=== PATIENT | female | born 1970 | race Caucasian/White ===

== ENCOUNTER 2017-01-12 01:52 | Inpatient (IN) | payer MEDICAID, OTHER ==
[2017-01-12] VITALS (8 sets, daily range): BP systolic 127–145; BP diastolic 78–91; PULSE 58–106; RESP 16–20; TEMP 97.7–99.8; O2SAT 97–100
[~2017-01-12] VITALS: Ht 162.6 cm; Wt 64.8 kg
[~2017-01-12 01:52] MED LIST: ADDE30TA PO; ALPR.5 PO; CELE40TA PO; IBUP400T20 PO; MOBI7.5T PO; OMEP20TA PO; ROBA750T PO
[2017-01-12] MEDS ORDERED: SODIUM CHLOR 0.9% 1000 ML INJ 1,000 ML IV SCH (02:13)
[2017-01-12] MEDS ORDERED: SODIUM CHLORIDE 0.9% FLUSH 5 ML FLUSH IVF PRN (02:15)
[2017-01-12] MEDS ORDERED: MORPHINE SULFATE 4 MG/ML INJ IV ONE (02:15)
[2017-01-12] MEDS ORDERED: ONDANSETRON HCL 4 MG/2 ML VIAL IV PUSH ONE (02:15)
[2017-01-12] MEDS ORDERED: AMBI10TA PO (02:18)
[2017-01-12] MEDS ORDERED: VALT500T PO (02:18)
--- NOTE | 2017-01-12 02:18 | PD ---
HPI Chief Complaint: Fall Time Seen by Provider: 02:10 Travel History International Travel<30 days: No Contact w/Intl Traveler<30days: No Traveled to known affect area: No History of Present Illness HPI 46-year-old female here for evaluation of chest and abdominal pain that started after falling out of bed at around 3:00 AM yesterday morning. Patient denies head or neck pain or injury. She is not on any antiplatelets or anticoagulants. Patient reports mainly abdominal pain that radiates up into her chest and around to her back. Pain is moderate to severe, worse with movement and palpation, associated with nausea. No vomiting or diarrhea. She tried Tylenol without relief of symptoms. She reports that she had her bladder stretched as a child, no other abdominal surgeries. PFSH Past Medical History Anxiety: Yes Depression: Yes Diminished Hearing: No Past Surgical History Other Surgery: Yes (BLADDER STRETCH AT AGE 2) Social History Alcohol Use: Yes (DAILY) Tobacco Use: No Substance Use: No Allergies-Medications (Allergen,Severity, Reaction): Coded Allergies: Hydrocodone (Unverified Allergy, Mild, 01/12/17) STATES MAKES HER FEEL "WIRED" Uncoded Allergies: BEETS (Allergy, Unknown, 03/19/14) PT STATES UNKNOWN Reported Meds & Prescriptions Reported Meds & Active Scripts Active Robaxin (Methocarbamol) 750 Mg Tab 750 Mg PO Q8HR Reported Ambien (Zolpidem Tartrate) 10 Mg Tab 10 Mg PO HS PRN Valtrex (Valacyclovir HCl) 500 Mg Tab 500 Mg PO TID PRN Omeprazole 20 Mg Tab 20 Mg PO DAILY Xanax (Alprazolam) 0.5 Mg Tab 0.5 Mg PO TID Celexa (Citalopram Hydrobromide) 40 Mg Tab 40 Mg PO DAILY Mobic (Meloxicam) 7.5 Mg Tab 15 Mg PO DAILY Review of Systems Except as stated in HPI: all other systems reviewed are Neg Physical Exam Narrative GENERAL: Well-developed, well-nourished, no acute distress. SKIN: Warm and dry. HEAD: Atraumatic. Normocephalic. EYES: Pupils equal and round. No scleral icterus. No injection or drainage. ENT: Mucous membranes pink and moist. NECK: Trachea midline. No JVD. CARDIOVASCULAR: Regular rate and rhythm. No murmur appreciated. RESPIRATORY: No accessory muscle use. Clear to auscultation. Breath sounds equal bilaterally. GASTROINTESTINAL: Abdomen soft, moderately distended, moderate diffuse tenderness. Normal bowel sounds. No hernias. MUSCULOSKELETAL: No obvious deformities. No clubbing. No cyanosis. No edema. NEUROLOGICAL: Awake and alert. No obvious cranial nerve deficits. Motor grossly within normal limits. Normal speech. PSYCHIATRIC: Appropriate mood and affect; insight and judgment normal. Data Data Last Documented VS Vital Signs Date Time Temp Pulse Resp B/P Pulse Ox O2 Delivery O2 Flow Rate FiO2 01/12/17 03:33 100 16 134/88 98 Room Air 01/12/17 02:01 97.8 Orders Complete Blood Count With Diff (01/12/17 02:13) Prothrombin Time / Inr (Pt) (01/12/17 02:13) Act Partial Throm Time (Ptt) (01/12/17 02:13) Type And Screen (01/12/17 02:13) Urinalysis - C+S If Indicated (01/12/17 02:13) Chest, Single Ap (01/12/17 02:13) Ct Abd/Pel W Iv Contrast(Rout) (01/12/17 02:13) Ct Thorax/ Chest W Iv Contrast (01/12/17 02:13) Iv Access Insert/Monitor (01/12/17 02:13) Ecg Monitoring (01/12/17 02:13) Oximetry (01/12/17 02:13) Oxygen Administration (01/12/17 02:13) Morphine Inj (Morphine Inj) (01/12/17 02:15) Sodium Chlor 0.9% 1000 Ml Inj (Ns 1000 M (01/12/17 02:13) Sodium Chloride 0.9% Flush (Ns Flush) (01/12/17 02:15) Ondansetron Inj (Zofran Inj) (01/12/17 02:15) Electrocardiogram (01/12/17 02:15) Ckmb (Isoenzyme) Profile (01/12/17 02:15) Troponin I (01/12/17 02:15) Beta Hcg (Quant/Titer) (01/12/17 02:35) Comprehensive Metabolic Panel (01/12/17 02:35) CKMB (01/12/17 02:35) CKMB% (01/12/17 02:35) Comprehensive Metabolic Panel (01/12/17 03:59) Lactic Acid (01/12/17 03:59) Blood Culture (01/12/17 03:59) Iohexol 350 Inj (Omnipaque 350 Inj) (01/12/17 04:11) Sodium Chlor 0.9% 1000 Ml Inj (Ns 1000 M (01/12/17 04:45) Morphine Inj (Morphine Inj) (01/12/17 04:45) Piperacil-Tazo 3.375 Gm Premix (Zosyn 3. (01/12/17 04:45) Lipase (01/12/17 04:05) Sodium Chlor 0.9% 1000 Ml Inj (Ns 1000 M (01/12/17 05:00) Admit Order (Ed Use Only) (01/12/17 04:53) Vital Signs (Adult) Q4H (01/12/17 04:52) Bedside Glucose ABIGAIL.AC&HS (01/12/17 04:52) Intake + Output ABIGAIL.QSHIFT (01/12/17 04:52) Alcohol Withdrawal Asmt-Ciwa Q4HX18 (01/12/17 04:52) ^ Seizure Precautions (01/12/17 04:52) Multivitamin Inj (Mvi-12 Inj)... (01/12/17 06:00) Thiamine Inj (Thiamine Inj) (01/12/17 06:00) Thiamine (Vit B1) (Vitamin B1) (01/15/17 09:00) Consult Cm-Etoh Abuse Dc Plan (01/12/17 ) Flumazenil Inj (Romazicon Inj) (01/12/17 05:00) Lorazepam (Ativan) (01/12/17 05:00) Lorazepam Inj (Ativan Inj) (01/12/17 05:00) Lorazepam (Ativan) (01/12/17 05:00) Lorazepam Inj (Ativan Inj) (01/12/17 05:00) Lorazepam Inj (Ativan Inj) (01/12/17 05:00) Lorazepam Inj (Ativan Inj) (01/12/17 05:00) Haloperidol Inj (Haldol Inj) (01/12/17 05:00) Piperacil-Tazo 4.5 Gm Premix (Zosyn 4.5 (01/12/17 10:00) Admit To Inpatient (01/12/17 ) Vital Signs (Adult) Q4H (01/12/17 04:52) Activity Oob With Assistance (01/12/17 04:52) Leather Fitter / Telemetry .CONTINUOUS (01/12/17 04:52) Intake + Output ABIGAIL.QSHIFT (01/12/17 04:52) Diet Clear Liquid (01/12/17 Breakfast) Sodium Chloride 0.9% Flush (Ns Flush) (01/12/17 05:00) Sodium Chloride 0.9% Flush (Ns Flush) (01/12/17 09:00) Ondansetron Inj (Zofran Inj) (01/12/17 05:00) Bisacodyl Supp (Dulcolax Supp) (01/12/17 05:00) Comprehensive Metabolic Panel (01/13/17 06:00) Complete Blood Count With Diff (01/13/17 06:00) Lipase (01/13/17 06:00) Scd Bilateral/Knee High ABIGAIL.BID (01/12/17 04:52) Alexander Bilateral/Knee High ABIGAIL.QSHIFT (01/12/17 04:52) Acetaminophen (Tylenol) (01/12/17 05:00) Morphine Inj (Morphine Inj) (01/12/17 05:00) Oxycodone (Roxicodone) (01/12/17 05:00) Inpatient Certification (01/12/17 ) Labs Laboratory Tests Test 01/12/17 01/12/17 02:35 04:05 White Blood Count 19.8 TH/MM3 Red Blood Count 4.51 MIL/MM3 Hemoglobin 14.9 GM/DL Hematocrit 44.0 % Mean Corpuscular Volume 97.6 FL Mean Corpuscular Hemoglobin 33.1 PG Mean Corpuscular Hemoglobin 33.9 % Concent Red Cell Distribution Width 12.8 % Platelet Count 262 TH/MM3 Mean Platelet Volume 8.2 FL Neutrophils (%) (Auto) 90.3 % Lymphocytes (%) (Auto) 4.4 % Monocytes (%) (Auto) 4.0 % Eosinophils (%) (Auto) 0.2 % Basophils (%) (Auto) 1.1 % Neutrophils # (Auto) 17.9 TH/MM3 Lymphocytes # (Auto) 0.9 TH/MM3 Monocytes # (Auto) 0.8 TH/MM3 Eosinophils # (Auto) 0.0 TH/MM3 Basophils # (Auto) 0.2 TH/MM3 CBC Comment AUTO DIFF Differential Comment AUTO DIFF CONFIRMED Platelet Estimate NORMAL Platelet Morphology Comment NORMAL Red Cell Morphology Comment NORMAL Urine Color OTTO Urine Turbidity SLIGHT Urine pH 5.0 Urine Specific [place] GREATER THAN 1.035 Urine Protein 30 mg/dL Urine Glucose (UA) NEG mg/dL Urine Ketones NEG mg/dL Urine Occult Blood NEG Urine Nitrite NEG Urine Bilirubin NEG Urine Leukocyte Esterase NEG Urine WBC 0-2 /hpf Urine Squamous Epithelial 6-8 /hpf Cells Urine Bacteria FEW /hpf Urine Mucus MOD /lpf Microscopic Urinalysis Comment CULT NOT INDICATED Sodium Level 127 MEQ/L 129 MEQ/L Potassium Level 4.1 MEQ/L 3.7 MEQ/L Chloride Level 90 MEQ/L 92 MEQ/L Carbon Dioxide Level 20.5 MEQ/L 26.2 MEQ/L Anion Gap 17 MEQ/L 11 MEQ/L Blood Urea Nitrogen 6 MG/DL 6 MG/DL Creatinine 0.92 MG/DL 0.68 MG/DL Estimat Glomerular Filtration 66 ML/MIN 93 ML/MIN Rate Random Glucose 112 MG/DL 99 MG/DL Calcium Level 8.1 MG/DL 7.0 MG/DL Total Bilirubin 1.8 MG/DL 1.5 MG/DL Aspartate Amino Transf 328 U/L 228 U/L (AST/SGOT) Alanine Aminotransferase 226 U/L 162 U/L (ALT/SGPT) Alkaline Phosphatase 101 U/L 76 U/L Total Creatine Kinase 126 U/L Creatine Kinase MB 1.2 NG/ML Troponin I LESS THAN 0.02 NG/ML Total Protein 7.1 GM/DL 5.3 GM/DL Albumin 3.7 GM/DL 2.9 GM/DL Human Chorionic Gonadotropin, LESS THAN 1 Quant MIU/ML Blood Type B POSITIVE Antibody Screen NEGATIVE Blood Bank Comment Lactic Acid Level 3.2 mmol/L Protein Corrected Calcium 7.9 MG/DL Lipase 7625 U/L [facility] Medical Decision Making Medical Screen Exam Complete: Yes Emergency Medical Condition: Yes Medical Record Reviewed: Yes Interpretation(s) EKG: Sinus, rate 92, normal axis, normal intervals, no acute ischemic abnormality. Differential Diagnosis Intrathoracic trauma, intra-abdominal trauma, intra-abdominal infectious process , ACS Narrative Course Vital signs show heart rate 106, blood pressure 143/82, pulse ox 100% on room air, oral temp of 97.8F. CBC is markable for WBC 19.8 with 90% neutrophils. CMP is remarkable for sodium 127, chloride 90, bicarbonate 20.5, anion gap 17, T bili 1.8, AST 328, ALT 226. Cardiac enzymes are negative. Beta hCG is negative. UA is not suggestive of UTI. Patient admits to drinking a moderate amount of alcohol, however she denies that she is a daily drinker. She states that she drinks alcohol every other day and drinks about 1-2 bottles of wine when she does. CT thorax: CONCLUSION: 1. No acute findings within the thorax. Dependent atelectasis in the lungs. See abdomen CT. CT abdomen pelvis: CONCLUSION: 1. Left lower lateral nondisplaced rib fracture possibly subacute. 2. Peripancreatic edema and fluid most characteristic of acute pancreatitis. Gallbladder is mildly distended. Small amount of free fluid in the abdomen and pelvis. No free air. Patient was made aware of all findings. Lipase added after CT abdomen pelvis reported. Patient is still tachycardic with a heart rate of 110. She was given a liter of IV fluids and return for a second liter. Given her leukocytosis and abdominal pain, she was also given a dose of Zosyn. She will be admitted for further treatment and evaluation of acute pancreatitis. Again the patient admits to drinking alcohol, but states she only does so every other day, and when she does she drinks about 1-2 bottles of wine. Case discussed with hospitalist Dr. Verduzco who will admit the patient to her service. Lipase is 7625. Lactic acid is 3.2. Lab reports that initial coags that were sent were unable to be run. A repeat blood type was sent and is pending at time of admission. Diagnosis Primary Impression: Acute pancreatitis Qualified Code: K85.20 - Alcohol-induced acute pancreatitis, unspecified complication status Additional Impressions: Leukocytosis Qualified Code: D72.829 - Leukocytosis, unspecified type Rib fracture Qualified Code: S22.32XA - Closed fracture of one rib of left side, initial encounter Hyponatremia Transaminitis Medhat Maldonado MD Jan 12, 2017 02:18
[2017-01-12 03:01] LABS: AUTOMATED NEUTROPHIL # 17.9 TH/MM3 (1.8-7.7); BASOPHIL # 0.2 TH/MM3 (0-0.2); BASOPHIL % 1.1 % (0.0-2.0); BLOOD, URINE NEG (NEG); EOSINOPHIL % 0.2 % (0.0-4.0); GLUCOSE,URINE NEG (NEG); KETONE, URINE NEG (NEG); LYMPH % 4.4 % (9.0-44.0); LYMPHOCYTE # 0.9 TH/MM3 (1.0-4.8); MEAN CELL VOLUME 97.6 FL (80.0-100.0); MEAN CORPUSCULAR HEMOGLOBIN 33.1 PG (27.0-34.0); MEAN CORPUSCULAR HGB CONC 33.9 % (32.0-36.0); NEUT % 90.3 % (16.0-70.0); NITRITE,URINE NEG (NEG); PLATELET COUNT 262 TH/MM3 (150-450); RED BLOOD COUNT 4.51 MIL/MM3 (4.00-5.30); RED CELL DISTRIBUTION WIDTH 12.8 % (11.6-17.2); WHITE BLOOD COUNT 19.8 TH/MM3 (4.0-11.0)
[2017-01-12 03:02] LABS: HEMO FLAGS AUTO DIFF
--- NOTE | 2017-01-12 03:02 | RADHPO ---
EXAM DATE/TIME: 01/12/2017 02:53 [facility] COMPARISON: No previous studies available for comparison. INDICATIONS : Fall. Chest pain. MEDICAL HISTORY : None. SURGICAL HISTORY : None. ENCOUNTER: Initial ACUITY: 1 day PAIN SCORE: 7/10 LOCATION: Bilateral chest FINDINGS: A single view of the chest demonstrates the lungs to be symmetrically aerated without evidence of mas s, infiltrate or effusion. The cardiomediastinal contours are unremarkable. Osseous structures are intact. CONCLUSION: No acute disease. Derek Trinidad MD on January 12, 2017 at 3:00 Board Certified Radiologist. This report was verified electronically.
[2017-01-12 03:15] LABS: CHLORIDE 90 MEQ/L (98-107); SODIUM (NA) 127 MEQ/L (136-145)
[2017-01-12 03:21] LABS: ANION GAP 17 MEQ/L (5-15); BICARBONATE 20.5 MEQ/L (21.0-32.0); BLOOD UREA NITROGEN 6 MG/DL (7-18)
[2017-01-12 03:23] LABS: ALT (GPT) 226 U/L (10-53)
[2017-01-12 03:24] LABS: AST (GOT) 328 U/L (15-37); GLOMERULAR FILTRATION RATE 66 ML/MIN (>89)
[2017-01-12 03:25] LABS: CREATINE KINASE 126 U/L (26-192); TOTAL BILIRUBIN ADULT 1.8 MG/DL (0.2-1.0); URINE COLOR AMBER (YELLW/STRAW)
[2017-01-12 03:26] LABS: ALKALINE PHOSPHATASE 101 U/L (45-117); BACTERIA, URINE FEW /hpf; BETA HCG QUANT LESS THAN 1 MIU/ML (0-5); MUCUS URINE MOD /lpf (OCC)
[2017-01-12 03:27] LABS: COMMENT (UR) CULT NOT INDICATED; CULTURE IF INDICATED CULT NOT INDICATED; WBC, URINE 0-2 /hpf (0-5)
[2017-01-12 03:28] LABS: POTASSIUM 4.1 MEQ/L (3.5-5.1)
[2017-01-12 03:34] LABS: PLATELET ESTIMATE SMEAR NORMAL (NORMAL); PLATELET MORPHOLOGY NORMAL (NORMAL); SCAN/DIFF AUTO DIFF CONFIRMED
[2017-01-12 03:45] LABS: CKMB 1.2 NG/ML (0.5-3.6)
[2017-01-12] MEDS ORDERED: IOHEXOL 350 MG/ML 10 ML VIAL (for RAD DIAG) IV ONE (04:11)
--- NOTE | 2017-01-12 04:23 | RADHPO ---
EXAM DATE/TIME: 01/12/2017 03:50 [facility] COMPARISON: No previous studies available for comparison. INDICATIONS : Fall yesterday. Diffuse chest and abdominal pain. IV CONTRAST: 96 cc Omnipaque 350 (iohexol) IV ; Cumulative dose for multiple exams. RADIATION DOSE: 11.48 CTDIvol (mGy) ; Combined studies - Thorax/Abdomen/Pelvis MEDICAL HISTORY : None SURGICAL HISTORY : None. ENCOUNTER: Initial ACUITY: 2 days PAIN SCALE: 5/10 LOCATION: chest TECHNIQUE: Volumetric scanning of the chest was performed. Using automated exposure control and adjustment of t he mA and/or kV according to patient size, radiation dose was kept as low as reasonably achievable to obtain optimal diagnostic quality images. FINDINGS: There is mild dependent atelectasis in the lungs. No pleural or pericardial effusion. No adenopathy. No acute bony abnormalities in the thorax. See abdomen CT for findings below diaphragm. CONCLUSION: 1. No acute findings within the thorax. Dependent atelectasis in the lungs. See abdomen CT. Derek Trinidad MD on January 12, 2017 at 4:19 Board Certified Radiologist. This report was verified electronically.
--- NOTE | 2017-01-12 04:27 | RADHPO ---
EXAM DATE/TIME: 01/12/2017 03:50 [facility] COMPARISON: No previous studies available for comparison. INDICATIONS : Fall yesterday. Chest and abdominal pain. IV CONTRAST: 96 cc Omnipaque 350 (iohexol) IV ; Cumulative dose for multiple exams. ORAL CONTRAST: No oral contrast ingested. RADIATION DOSE: 11.48 CTDIvol (mGy) ; Combined studies - Thorax/Abdomen/Pelvis MEDICAL HISTORY : None SURGICAL HISTORY : None. ENCOUNTER: Initial ACUITY: 2 days PAIN SCALE: 5/10 LOCATION: Abdomen. TECHNIQUE: Volumetric scanning of the abdomen and pelvis was performed. Using automated exposure control and ad justment of the mA and/or kV according to patient size, radiation dose was kept as low as reasonably achievable to obtain optimal diagnostic quality images. FINDINGS: Lung bases clear except minimal dependent atelectasis. There is a left lower lateral rib fracture whi ch may be subacute. There is diffuse fatty infiltration of the liver. There is peripancreatic edema and fluid most charac teristic of acute pancreatitis. Small amount of free fluid is seen tracking in the paracolic gutters and there is some free fluid in the pelvis. No acute findings in the adrenals, kidneys. No bowel obstruction. No free air. CONCLUSION: 1. Left lower lateral nondisplaced rib fracture possibly subacute. 2. Peripancreatic edema and fluid most characteristic of acute pancreatitis. Gallbladder is mildly di stended. Small amount of free fluid in the abdomen and pelvis. No free air. Derek Trinidad MD on January 12, 2017 at 4:22 Board Certified Radiologist. This report was verified electronically.
[2017-01-12 04:31] LABS: POTASSIUM 3.7 MEQ/L (3.5-5.1)
[2017-01-12 04:43] LABS: BICARBONATE 26.2 MEQ/L (21.0-32.0); TOTAL BILIRUBIN ADULT 1.5 MG/DL (0.2-1.0)
[2017-01-12] MEDS ORDERED: MORPHINE SULFATE 4 MG/ML INJ IV PUSH ONE (04:45)
[2017-01-12] MEDS ORDERED: SODIUM CHLOR 0.9% 1000 ML INJ 1,000 ML IV ONE ×3 (04:45→13:45)
[2017-01-12] MEDS ORDERED: PIPERACIL-TAZO 3.375 GM PREMIX 50 ML IV ONE (04:45)
[2017-01-12] MEDS ORDERED: SODIUM CHLORIDE 0.9% FLUSH 5 ML FLUSH FLUSH PRN (05:00)
[2017-01-12] MEDS ORDERED: LORazepam 2 MG TAB PO PRN (05:00)
[2017-01-12] MEDS ORDERED: ACETAMINOPHEN 325 MG TAB PO PRN (05:00)
[2017-01-12] MEDS ORDERED: LORazepam 2 MG/ML VIAL IV PUSH PRN ×3 (05:00)
[2017-01-12] MEDS ORDERED: BISACODYL 10 MG SUPP PR PRN (05:00)
[2017-01-12] MEDS ORDERED: HALOPERIDOL LACTATE 5 MG/ML AMP IM PRN (05:00)
[2017-01-12] MEDS ORDERED: FLUMAZENIL 0.5 MG/5 ML VIAL IV PUSH PRN (05:00)
[2017-01-12 05:06] LABS: CALCIUM-PROTEIN CORRECTED 7.9 MG/DL (8.5-10.1)
[2017-01-12] MEDS: THIAMINE INJ 100 MG in SODIUM CHLORIDE 0.9% INJ 100 ML IV SCH (06:44)
[2017-01-12] MEDS: MULTIVITAMIN INJ 10 ML, FOLIC ACID INJ 1 MG in SODIUM CHLORID 0.9% 500 ML INJ 500 ML IV SCH (06:45)
[2017-01-12 06:49] LABS: APTT (PATIENT) 26.1 SEC (24.3-30.1); INTERNATIONAL NORMALIZED RATIO 1.3 RATIO; PROTHROMBIN TIME - PATIENT 14.3 SEC (9.8-11.6)
[2017-01-12] MEDS: SODIUM CHLORIDE 0.9% FLUSH 5 ML FLUSH FLUSH SCH ×2 (08:53→20:07)
[2017-01-12] MEDS: LORazepam 2 MG/ML VIAL IV PUSH PRN ×2 (08:54→15:12)
[2017-01-12] MEDS: PIPERACIL-TAZO 4.5 GM PREMIX 100 ML IV SCH ×3 (11:25→20:08)
--- NOTE | 2017-01-12 12:37 | EKG ---
Date Performed: 01/12/2017 Time Performed: 02:46:56 PTAGE: 46 years EKG: Sinus rhythm . Normal ECG NO PREVIOUS TRACING DOCTOR: Dillan Gomez Interpretating Date/Time 01/12/2017 12:31:33
--- NOTE | 2017-01-12 13:39 | HHI.HP ---
esa bennett [facility] Service [facility] Primary Care Physician Esa Bennett M.D. Admission Diagnosis acute pancreatitis, leukocytosis, hyponatremia, rib fracture Diagnoses: Chief Complaint: fall at home Travel History International Travel<30 Days: No Contact w/Intl Traveler <30 Da: No Traveled to Known Affected Are: No Sepsis Criteria SIRS Criteria (2 or more): Heart rate over 90, WBC > 37560, < 4000 or > 10% bands Sepsis Criteria (SIRS+source): Infect source susp/known Severe Sepsis (+one): Organ Dysfunction, Lactate >2 History of Present Illness This patient is a 46-year-old female who had been drinking overnight and tripped and fell in the morning. She reported chest pain and abdominal discomfort and came to the emergency room for evaluation of same. Patient's found have some right lower rib fracture as well as elevated LFTs and evidence of acute pancreatitis. Patient does say she had been somewhat nauseated but had a lot of back pain radiating into her chest over the last 3-4 days. Pain is 10 out of 10 and associate with bloating. Her menstrual cycle is on and she figured it was related to that area she does take omeprazole as needed for dyspepsia. The pain is worse with movement and improved with morphine. She has been able to eat but noted that it was uncomfortable. She's never had pancreatitis before. Patient was given IV fluids overnight. Pain medication has been helpful and the patient is now slightly tremulous. She also had fever with tachycardia and tachypnea and elevated lactic acid. Patient also appears to have sepsis. This is likely due to her pancreatitis and for these reasons the patient has been admitted to the hospital Review of Systems Constitutional: DENIES: Diaphoretic episodes, Fatigue, Fever, Weight gain, Weight loss, Chills, Dizziness, Change in appetite, Night Sweats Endocrine: DENIES: Abnorml menstrual pattern, Heat/cold intolerance, Polydipsia , Polyuria, Polyphagia Eyes: DENIES: Blurred vision, Diplopia, Eye inflammation, Eye pain, Vision loss , Photosensitivity, Double Vision Ears, nose, mouth, throat: DENIES: Tinnitus, Hearing loss, Vertigo, Nasal discharge, Oral lesions, Throat pain, Hoarseness, Ear Pain, Running Nose, Epistaxis, Sinus Pain, Toothache, Odynophagia Respiratory: DENIES: Apneas, Cough, Snoring, Wheezing, Hemoptysis, Sputum production, Shortness of breath Cardiovascular: DENIES: Chest pain, Palpitations, Syncope, Dyspnea on Exertion , PND, Lower Extremity Edema, Orthopnea, Claudication Gastrointestinal: DENIES: Abdominal pain, Black stools, Bloody stools, Constipation, Diarrhea, Nausea, Vomiting, Difficulty Swallowing, Anorexia Genitourinary: DENIES: Abnormal vaginal bleeding, Dysmenorrhea, Dyspareunia, Sexual dysfunction, Urinary frequency, Urinary incontinence, Urgency, Hematuria , Dysuria, Nocturia, Vaginal discharge Musculoskeletal: COMPLAINS OF: Joint pain, Joint Swelling Integumentary: DENIES: Abnormal pigmentation, Pruritus, Rash, Nail changes, Breast masses, Breast skin changes, Nipple discharge Hematologic/lymphatic: DENIES: Bruising, Lymphadenopathy Immunologic/allergic: DENIES: Eczema, Urticaria Neurologic: DENIES: Abnormal gait, Headache, Localized weakness, Paresthesias, Seizures, Speech Problems, Tremor, Poor Balance Psychiatric: COMPLAINS OF: Anxiety, DENIES: Confusion, Mood changes, Depression, Hallucinations, Agitation, Suicidal Ideation, Homicidal Ideation, Delusions Past Family Social History Past Medical History Anxiety Chronic osteoarthritis pain Past Surgical History No adult surgeries Reported Medications Reviewed in the medical record Allergies: Coded Allergies: Hydrocodone (Unverified Allergy, Mild, 01/12/17) STATES MAKES HER FEEL "WIRED" Uncoded Allergies: BEETS (Allergy, Unknown, 03/19/14) PT STATES UNKNOWN Active Ordered Medications Reviewed in the medical record Family History Multiple psychiatric problems in her family including her mother and her brother , father was murdered Social History Patient drinks wine daily and unquantified amount, lives with her family, no tobacco 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 Cool and dry. HEAD: Atraumatic. Normocephalic. No temporal or scalp tenderness. EYES: Pupils equal round and reactive. Extraocular motions intact. No scleral icterus. No injection or drainage. ENT: Nose without bleeding, purulent drainage or septal hematoma. Throat without erythema, tonsillar hypertrophy or exudate. Uvula midline. Airway patent. NECK: Trachea midline. No JVD or lymphadenopathy. Supple, nontender, no meningeal signs. CARDIOVASCULAR: Regular rate and rhythm without murmurs, gallops, or rubs. RESPIRATORY: Clear to auscultation. Breath sounds equal bilaterally. No wheezes , rales, or rhonchi. GASTROINTESTINAL: Abdomen soft, non-tender, nondistended. No hepato-splenomegaly , or palpable masses. No guarding. MUSCULOSKELETAL: Extremities without clubbing, cyanosis, or edema. No joint tenderness, effusion, or edema noted. No calf tenderness. Negative Homans sign bilaterally. NEUROLOGICAL: Awake and alert. Cranial nerves II through XII intact. Motor and sensory grossly within normal limits. Five out of 5 muscle strength in all muscle groups. Normal speech. Laboratory Laboratory Tests Test 01/12/17 01/12/17 01/12/17 02:35 04:05 06:05 White Blood Count 19.8 Red Blood Count 4.51 Hemoglobin 14.9 Hematocrit 44.0 Mean Corpuscular Volume 97.6 Mean Corpuscular Hemoglobin 33.1 Mean Corpuscular Hemoglobin 33.9 Concent Red Cell Distribution Width 12.8 Platelet Count 262 Mean Platelet Volume 8.2 Neutrophils (%) (Auto) 90.3 Lymphocytes (%) (Auto) 4.4 Monocytes (%) (Auto) 4.0 Eosinophils (%) (Auto) 0.2 Basophils (%) (Auto) 1.1 Neutrophils # (Auto) 17.9 Lymphocytes # (Auto) 0.9 Monocytes # (Auto) 0.8 Eosinophils # (Auto) 0.0 Basophils # (Auto) 0.2 CBC Comment AUTO DIFF Differential Comment AUTO DIFF CONFIRMED Platelet Estimate NORMAL Platelet Morphology Comment NORMAL Red Cell Morphology Comment NORMAL Urine Color OTTO Urine Turbidity SLIGHT Urine pH 5.0 Urine Specific [place] GREATER THAN 1.035 Urine Protein 30 Urine Glucose (UA) NEG Urine Ketones NEG Urine Occult Blood NEG Urine Nitrite NEG Urine Bilirubin NEG Urine Leukocyte Esterase NEG Urine WBC 0-2 Urine Squamous Epithelial 6-8 Cells Urine Bacteria FEW Urine Mucus MOD Microscopic Urinalysis Comment CULT NOT INDICATED Sodium Level 127 129 Potassium Level 4.1 3.7 Chloride Level 90 92 Carbon Dioxide Level 20.5 26.2 Anion Gap 17 11 Blood Urea Nitrogen 6 6 Creatinine 0.92 0.68 Estimat Glomerular Filtration 66 93 Rate Random Glucose 112 99 Calcium Level 8.1 7.0 Total Bilirubin 1.8 1.5 Aspartate Amino Transf 328 228 (AST/SGOT) Alanine Aminotransferase 226 162 (ALT/SGPT) Alkaline Phosphatase 101 76 Total Creatine Kinase 126 Creatine Kinase MB 1.2 Troponin I LESS THAN 0.02 Total Protein 7.1 5.3 Albumin 3.7 2.9 Human Chorionic Gonadotropin, LESS THAN 1 Quant Blood Type B POSITIVE Antibody Screen NEGATIVE Blood Bank Comment Lactic Acid Level 3.2 2.5 Protein Corrected Calcium 7.9 Lipase 7625 Prothrombin Time 14.3 Prothromb Time International 1.3 Ratio Activated Partial 26.1 Thromboplast Time Date/Time Procedure Status Source Growth 01/12/17 04:10 Aerobic Blood Culture Received Blood Peripheral Pending 01/12/17 04:10 Anaerobic Blood Culture Received Blood Peripheral Pending Result Diagram: 01/12/17 0235 01/12/17 0405 Imaging Last Impressions Chest X-Ray 01/12/17212 Signed Impressions: Service Date/Time: Thursday, January 12, 2017 02:53 - CONCLUSION: No acute disease. Derek Trinidad MD Chest CT 01/12/17212 Signed Impressions: Service Date/Time: Thursday, January 12, 2017 03:50 - CONCLUSION: 1. No acute findings within the thorax. Dependent atelectasis in the lungs. See abdomen CT. Derek Trinidad MD Abdomen/Pelvis CT 01/12/17212 Signed Impressions: Service Date/Time: Thursday, January 12, 2017 03:50 - CONCLUSION: 1. Left lower lateral nondisplaced rib fracture possibly subacute. 2. Peripancreatic edema and fluid most characteristic of acute pancreatitis. Gallbladder is mildly distended. Small amount of free fluid in the abdomen and pelvis. No free air. Derek Trinidad MD Septic Shock Reassessment Heart: Regular rate and rhythm Lungs: Clear Skin: Warm Peripheral Pulses: Bounding Right Radial Bounding Left Radial Bounding Right Popliteal Bounding Left Popliteal Bounding Right Dorsalis Pedis Bounding Left Dorsalis Pedis Bounding Right Posterior Tibial Bounding Left Posterior Tibial Assessment and Plan Problem List: (1) Acute pancreatitis ICD Code: K85.90 Status: Acute Plan: With associated sepsis, patient is quite a bit of alcohol. We'll continue with IV hydration clear liquids iv morphine for pain (2) Rib fracture ICD Code: S22.39XA Status: Acute Plan: Secondary to fall, continue pulmonary toilet Conservative management (3) Severe sepsis ICD Code: A41.9 Status: Acute Plan: Due to pancreatitis. We'll continue with treatment of pancreatitis Empiric Zosyn, follow blood cultures. Urine and x-ray of the chest unremarkable on my review (4) EtOH dependence ICD Code: F10.20 Status: Acute Plan: continue ciwa protocol (5) Transaminitis ICD Code: R74.0 Status: Acute Plan: We'll follow-up with of the liver and gallbladder. Likely due to alcohol Physician Certification 2 Midnight Certification Type: Admission for Inpatient Services Order for Inpatient Services The services are ordered in accordance with Medicare regulations or non- Medicare payer requirements, as applicable. In the case of services not specified as inpatient-only, they are appropriately provided as inpatient services in accordance with the 2-midnight benchmark. Estimated LOS (days): 3 3 days is the estimated time the patient will need to remain in the hospital, assuming treatment plan goals are met and no additional complications. Post-Hospital Plan: Home Problem Qualifiers (1) Acute pancreatitis: Qualified Code: K85.20 - Alcohol-induced acute pancreatitis, unspecified complication status (2) Rib fracture: Qualified Code: S22.32XA - Closed fracture of one rib of left side, initial encounter Melissa Coon MD Jan 12, 2017 13:38
[2017-01-12] MEDS ORDERED: KETOROLAC TROMETHAMINE 30 MG/ML (IVP) VIAL IV PUSH PRN (14:00)
[2017-01-12] MEDS: SODIUM CHLOR 0.9% 1000 ML INJ 1,000 ML IV SCH ×2 (14:07→23:56)
[2017-01-12] MEDS: PANTOPRAZOLE SOD 40 MG DELAYED RELEASE TAB PO SCH (15:16)
[2017-01-12] MEDS: MORPHINE SULFATE 4 MG/ML INJ IV PRN ×3 (15:42→21:47)
[2017-01-12] MEDS: LORazepam 1 MG TAB PO PRN (20:07)
[2017-01-12] MEDS: ZOLPIDEM TARTRATE 10 MG TAB PO PRN (21:45)
--- NOTE | 2017-01-12 22:46 | RADHPO ---
EXAM DATE/TIME: 01/12/2017 20:53 [facility] COMPARISON: CT ABDOMEN & PELVIS W CONTRAST, January 12, 2017, 3:50. INDICATIONS : Abdominal pain. Pancreatitis. Inflammed gallbladder. MEDICAL HISTORY : Pancreatitis. Gastroesophageal reflux disease. Arthritis. Migraines. Asthma. Urinary tract infections . Depression. Anixety. Substance use. SURGICAL HISTORY : Bladder stretch. ENCOUNTER: Initial ACUITY: 1 day PAIN SCORE: 0/10 LOCATION: Abdomen. MEASUREMENTS: LIVER: 16.5 cm length COMMON DUCT: 5 mm RIGHT KIDNEY: 10.4 x 4.9 x 5.0 cm LEFT KIDNEY: 10.2 x 5.0 x 5.3 cm SPLEEN: 8.8 cm length AORTA: 2.0 cm maximal FINDINGS: LIVER: Liver demonstrates a heterogeneous texture without evidence of focal space occupying lesions or bilia ry obstruction. Portal vein is patent. COMMON DUCT: No intraluminal mass or stone visualized. GALLBLADDER: Gallbladder is distended. There is no evidence of cholelithiasis or wall thickening. Pericholecystic fluid is evident. PANCREAS: Peripancreatic fluid as seen on CT is demonstrated. The main pancreatic duct measures 4.5 mm in size. RIGHT KIDNEY: No hydronephrosis, stone or mass. LEFT KIDNEY: No hydronephrosis, stone or mass. SPLEEN: No focal lesion. AORTA: Non aneurysmal. IVC: Within normal limits. CONCLUSION: Pericholecystic and peripancreatic free fluid. Abnormal pancreas with mild main pancreatic duct prominence similar to that seen on CT characteristic of acute pancreatitis. Distended gallbladder without evidence of wall thickening or cholelithiasis. No evidence of biliary obstructive disease. Abnormal appearing liver characteristic of advanced steatosis. Jaleel Pena MD on January 12, 2017 at 22:39 Board Certified Radiologist. This report was verified electronically.
[2017-01-13] VITALS: BP 103/76; PULSE 90; RESP 18; TEMP 97.9; O2SAT 97
[2017-01-13] MEDS: MORPHINE SULFATE 4 MG/ML INJ IV PRN ×4 (01:30→12:40)
[2017-01-13] MEDS: PIPERACIL-TAZO 4.5 GM PREMIX 100 ML IV SCH ×2 (04:00→10:19)
[2017-01-13] MEDS: LORazepam 1 MG TAB PO PRN ×2 (04:12→15:43)
[2017-01-13] MEDS: THIAMINE INJ 100 MG in SODIUM CHLORIDE 0.9% INJ 100 ML IV SCH (04:30)
[2017-01-13] MEDS: MULTIVITAMIN INJ 10 ML, FOLIC ACID INJ 1 MG in SODIUM CHLORID 0.9% 500 ML INJ 500 ML IV SCH (06:00)
[2017-01-13 06:16] LABS: AUTOMATED NEUTROPHIL # 13.7 TH/MM3 (1.8-7.7); BASOPHIL # 0.7 TH/MM3 (0-0.2); BASOPHIL % 4.1 % (0.0-2.0); EOSINOPHIL # 0.6 TH/MM3 (0-0.4); EOSINOPHIL % 3.5 % (0.0-4.0); HEMATOCRIT 40.9 % (35.0-46.0); LYMPHOCYTE # 0.8 TH/MM3 (1.0-4.8); MEAN CELL VOLUME 99.2 FL (80.0-100.0); MEAN CORPUSCULAR HEMOGLOBIN 33.7 PG (27.0-34.0); MONO % 4.1 % (0.0-8.0); NEUT % 83.3 % (16.0-70.0); PLATELET COUNT 134 TH/MM3 (150-450); RED BLOOD COUNT 4.12 MIL/MM3 (4.00-5.30); RED CELL DISTRIBUTION WIDTH 13.3 % (11.6-17.2); WHITE BLOOD COUNT 16.5 TH/MM3 (4.0-11.0)
[2017-01-13 06:23] LABS: BICARBONATE 26.6 MEQ/L (21.0-32.0); CALCIUM-PROTEIN CORRECTED 8.1 MG/DL (8.5-10.1); POTASSIUM 3.1 MEQ/L (3.5-5.1); TOTAL BILIRUBIN ADULT 2.9 MG/DL (0.2-1.0)
[2017-01-13 06:25] LABS: HEMO FLAGS AUTO DIFF
[2017-01-13 07:20] LABS: SCAN/DIFF AUTO DIFF CONFIRMED
[2017-01-13 08:00] VITALS: BP 132/92; PULSE 88; RESP 17; TEMP 98.5; O2SAT 96
[2017-01-13] MEDS: PANTOPRAZOLE SOD 40 MG DELAYED RELEASE TAB PO SCH (08:25)
[2017-01-13] MEDS: CITALOPRAM HYDROBROMIDE 40 MG TAB PO SCH (08:25)
[2017-01-13] MEDS: SODIUM CHLORIDE 0.9% FLUSH 5 ML FLUSH FLUSH SCH ×2 (08:26→20:46)
[2017-01-13] MEDS: SODIUM CHLOR 0.9% 1000 ML INJ 1,000 ML IV SCH (08:32)
[2017-01-13] MEDS ORDERED: MELOXICAM 7.5 MG TAB PO SCH (09:00)
[2017-01-13 09:53] LABS: HDL CHOLESTEROL 34.2 MG/DL (40.0-60.0)
[2017-01-13 12:00] VITALS: BP 112/71; PULSE 89; RESP 17; TEMP 98.1; O2SAT 93
[2017-01-13] MEDS: ONDANSETRON HCL 4 MG/2 ML VIAL IVP PRN (12:42)
--- NOTE | 2017-01-13 12:56 | HHI.PR ---
Subjective Remarks Patient seen and evaluated today in follow-up for acute pancreatitis and alcohol withdrawal. Doing much better today. Less tremulous. LFTs improved. Ultrasound gallbladder and CT findings discussed with patient. Patient also with less pain and wanting to advance her diet Objective Vitals Vital Signs Date Time Temp Pulse Resp B/P Pulse Ox O2 Delivery O2 Flow Rate FiO2 01/13/17 08:00 98.5 88 17 132/92 96 01/13/17 00:00 97.9 90 18 103/76 97 01/12/17 20:00 99.8 87 20 135/84 97 01/12/17 16:00 97.7 89 20 128/78 98 I/O 01/12/17 01/12/17 01/12/17 01/13/17 01/13/17 01/13/17 07:00 15:00 23:00 07:00 15:00 23:00 Intake Total 2050 ml 1247 ml 280 ml Balance 2050 ml 1247 ml 280 ml Intake Oral 240 ml 280 ml IV Total 2050 ml 1007 ml # Voids 3 1 # Bowel Movements 0 Result Diagram: 01/13/17 0535 01/13/17 0535 Imaging Last Impressions Chest X-Ray 01/12/17212 Signed Impressions: Service Date/Time: Thursday, January 12, 2017 02:53 - CONCLUSION: No acute disease. Derek Trinidad MD Chest CT 01/12/17212 Signed Impressions: Service Date/Time: Thursday, January 12, 2017 03:50 - CONCLUSION: 1. No acute findings within the thorax. Dependent atelectasis in the lungs. See abdomen CT. Derek Trinidad MD Abdomen/Pelvis CT 01/12/17212 Signed Impressions: Service Date/Time: Thursday, January 12, 2017 03:50 - CONCLUSION: 1. Left lower lateral nondisplaced rib fracture possibly subacute. 2. Peripancreatic edema and fluid most characteristic of acute pancreatitis. Gallbladder is mildly distended. Small amount of free fluid in the abdomen and pelvis. No free air. Derek Trinidad MD Abdomen Ultrasound 01/12/17 0000 Signed Impressions: Service Date/Time: Thursday, January 12, 2017 20:53 - CONCLUSION: Pericholecystic and peripancreatic free fluid. Abnormal pancreas with mild main pancreatic duct prominence similar to that seen on CT characteristic of acute pancreatitis. Distended gallbladder without evidence of wall thickening or cholelithiasis. No evidence of biliary obstructive disease. Abnormal appearing liver characteristic of advanced steatosis. Jaleel Pena MD Objective Remarks GENERAL: This is a well-nourished, well-developed patient, in no apparent distress. CARDIOVASCULAR: Regular rate and rhythm without murmurs, gallops, or rubs. RESPIRATORY: Clear to auscultation. Breath sounds equal bilaterally. No wheezes , rales, or rhonchi. GASTROINTESTINAL: Abdomen soft, non-tender, nondistended. Normal active bowel sounds MUSCULOSKELETAL: Extremities without clubbing, cyanosis, or edema. NEURO: Alert & Oriented x4 to person, place, time, situation. Moves all ext x4 A/P Problem List: (1) Acute pancreatitis ICD Code: K85.90 Status: Acute Plan: With associated sepsis, patient is quite a bit of alcohol. We'll continue with IV hydration advance diet iv morphine for pain if not tolerating po meds (2) Rib fracture ICD Code: S22.39XA Status: Acute Plan: Secondary to fall, continue pulmonary toilet Conservative management (3) Severe sepsis ICD Code: A41.9 Status: Acute Plan: Due to pancreatitis. We'll continue with treatment of pancreatitis Empiric Zosyn, follow blood cultures. Urine and x-ray of the chest unremarkable on my review (4) EtOH dependence ICD Code: F10.20 Status: Acute Plan: continue ciwa protocol scheduled librium (5) Transaminitis ICD Code: R74.0 Status: Acute Plan: We'll follow-up with of the liver and gallbladder. Likely due to alcohol Discharge Planning flaquita nagel in am if tolerating diet and pain Problem Qualifiers (1) Acute pancreatitis: Qualified Code: K85.20 - Alcohol-induced acute pancreatitis, unspecified complication status (2) Rib fracture: Qualified Code: S22.32XA - Closed fracture of one rib of left side, initial encounter Melissa Coon MD Jan 13, 2017 12:56
[2017-01-13] MEDS ORDERED: BISACODYL EC 5 MG TABEC PO ONE (13:00)
[2017-01-13 16:00] VITALS: BP 144/100; PULSE 94; RESP 18; TEMP 97.7; O2SAT 95
[2017-01-13 20:00] VITALS: BP 133/91; PULSE 78; RESP 20; TEMP 98.7; O2SAT 100
[2017-01-13] MEDS: ZOLPIDEM TARTRATE 10 MG TAB PO PRN (22:46)
[2017-01-14] VITALS: BP 129/86; PULSE 79; RESP 20; TEMP 98.5; O2SAT 100
[2017-01-14 04:00] VITALS: BP 131/95; PULSE 93; RESP 20; TEMP 99.3; O2SAT 95
[2017-01-14 07:08] LABS: ALKALINE PHOSPHATASE 80 U/L (45-117); ALT (GPT) 75 U/L (10-53); ANION GAP 9 MEQ/L (5-15); AST (GOT) 47 U/L (15-37); BICARBONATE 29.2 MEQ/L (21.0-32.0); BLOOD UREA NITROGEN 2 MG/DL (7-18); CHLORIDE 102 MEQ/L (98-107); GLOMERULAR FILTRATION RATE 136 ML/MIN (>89); SODIUM (NA) 140 MEQ/L (136-145); TOTAL BILIRUBIN ADULT 1.9 MG/DL (0.2-1.0)
[2017-01-14 07:12] LABS: POTASSIUM 2.9 MEQ/L (3.5-5.1)
[2017-01-14] MEDS ORDERED: POTASSIUM CHLOR 20 MEQ PREMIX 100 ML IV ONE (07:30)
[2017-01-14] MEDS ORDERED: POTASSIUM CHLORIDE 20 MEQ CONTROLLED RELEASE TAB PO ONE (07:30)
[2017-01-14] MEDS: PANTOPRAZOLE SOD 40 MG DELAYED RELEASE TAB PO SCH (07:55)
[2017-01-14] MEDS: CITALOPRAM HYDROBROMIDE 40 MG TAB PO SCH (07:55)
[2017-01-14] MEDS: ONDANSETRON HCL 4 MG/2 ML VIAL IVP PRN (07:57)
[2017-01-14 08:00] VITALS: BP 134/90; PULSE 72; RESP 16; TEMP 98.2; O2SAT 97
[2017-01-14] MEDS ORDERED: MULTIVITAMIN TAB PO SCH (09:00)
[2017-01-14] MEDS ORDERED: THIAMINE HCL 100 MG TAB PO SCH (09:00)
[2017-01-14] MEDS ORDERED: PANT40TA3 PO (10:51)
[2017-01-14] MEDS ORDERED: CHLO10CA2 PO (10:51)
[2017-01-14] MEDS ORDERED: OXYC-392 PO (10:51)
--- NOTE | 2017-01-14 10:52 | HHI.DCPOC ---
Discharge Care Plan Diagnosis: (1) Transaminitis (2) EtOH dependence (3) Rib fracture (4) Acute pancreatitis Goals to Promote Your Health * To prevent worsening of your condition and complications * To maintain your health at the optimal level Directions to Meet Your Goals Take your medications as prescribed Follow your dietary instruction Follow activity as directed Keep your appointments as scheduled Take your immunizations and boosters as scheduled If your symptoms worsen call your PCP, if no PCP go to Urgent Care Center or Emergency Room Smoking is Dangerous to Your Health. Avoid second hand smoke Call the 24-hour hour crisis hotline for domestic abuse at Melissa Coon MD Jan 14, 2017 10:52
--- NOTE | 2017-01-14 10:55 | HHI.DS ---
nima Discharge Summary Admission Date Jan 12, 2017 at 04:55 Discharge Date: Jan 14, 2017 Admitting Diagnosis acute pancreatitis, leukocytosis, hyponatremia, rib fracture (1) Acute pancreatitis ICD Code: K85.90 (2) Rib fracture ICD Code: S22.39XA (3) Severe sepsis ICD Code: A41.9 Diagnosis: Principal (4) EtOH dependence ICD Code: F10.20 (5) Transaminitis ICD Code: R74.0 Procedures none Brief History - From Admission This patient is a 46-year-old female who had been drinking overnight and tripped and fell in the morning. She reported chest pain and abdominal discomfort and came to the emergency room for evaluation of same. Patient's found have some right lower rib fracture as well as elevated LFTs and evidence of acute pancreatitis. Patient does say she had been somewhat nauseated but had a lot of back pain radiating into her chest over the last 3-4 days. Pain is 10 out of 10 and associate with bloating. Her menstrual cycle is on and she figured it was related to that area she does take omeprazole as needed for dyspepsia. The pain is worse with movement and improved with morphine. She has been able to eat but noted that it was uncomfortable. She's never had pancreatitis before. Patient was given IV fluids overnight. Pain medication has been helpful and the patient is now slightly tremulous. She also had fever with tachycardia and tachypnea and elevated lactic acid. Patient also appears to have sepsis. This is likely due to her pancreatitis and for these reasons the patient has been admitted to the hospital CBC/BMP: 01/13/17 0535 01/14/17 0628 Significant Findings Laboratory Tests Test 01/12/17 01/12/17 01/12/17 01/13/17 02:35 04:05 06:05 05:35 White Blood Count 19.8 TH/MM3 16.5 TH/MM3 (4.0-11.0) (4.0-11.0) Neutrophils (%) (Auto) 90.3 % 83.3 % (16.0-70.0) (16.0-70.0) Lymphocytes (%) (Auto) 4.4 % 5.0 % (9.0-44.0) (9.0-44.0) Neutrophils # (Auto) 17.9 TH/MM3 13.7 TH/MM3 (1.8-7.7) (1.8-7.7) Lymphocytes # (Auto) 0.9 TH/MM3 0.8 TH/MM3 (1.0-4.8) (1.0-4.8) Urine Color OTTO (YELLW/STRAW) Urine Specific [place] GREATER THAN 1.035 (1.002-1.035) Urine Protein 30 mg/dL (NEG-TRACE) Urine Squamous Epithelial 6-8 /hpf (0-5) Cells Urine Bacteria FEW /hpf (NONE) Urine Mucus MOD /lpf (OCC) Sodium Level 127 MEQ/L 129 MEQ/L (136-145) (136-145) Chloride Level 90 MEQ/L 92 MEQ/L (98-107) (98-107) Carbon Dioxide Level 20.5 MEQ/L (21.0-32.0) Anion Gap 17 MEQ/L (5-15) Blood Urea Nitrogen 6 MG/DL (7-18) 6 MG/DL (7-18) 3 MG/DL (7-18) Estimat Glomerular Filtration 66 ML/MIN (>89) Rate Random Glucose 112 MG/DL (74-106) Calcium Level 8.1 MG/DL 7.0 MG/DL 7.4 MG/DL (8.5-10.1) (8.5-10.1) (8.5-10.1) Total Bilirubin 1.8 MG/DL 1.5 MG/DL 2.9 MG/DL (0.2-1.0) (0.2-1.0) (0.2-1.0) Aspartate Amino Transf 328 U/L (15-37) 228 U/L (15-37) 125 U/L (15-37) (AST/SGOT) Alanine Aminotransferase 226 U/L (10-53) 162 U/L (10-53) 115 U/L (10-53) (ALT/SGPT) Troponin I LESS THAN 0.02 NG/ML (0.02-0.05) Lactic Acid Level 3.2 mmol/L 2.5 mmol/L (0.4-2.0) (0.4-2.0) Protein Corrected Calcium 7.9 MG/DL 8.1 MG/DL (8.5-10.1) (8.5-10.1) Total Protein 5.3 GM/DL 5.9 GM/DL (6.4-8.2) (6.4-8.2) Albumin 2.9 GM/DL 2.9 GM/DL (3.4-5.0) (3.4-5.0) Lipase 7625 U/L 1378 U/L (73-393) (73-393) Prothrombin Time 14.3 SEC (9.8-11.6) Platelet Count 134 TH/MM3 (150-450) Basophils (%) (Auto) 4.1 % (0.0-2.0) Eosinophils # (Auto) 0.6 TH/MM3 (0-0.4) Basophils # (Auto) 0.7 TH/MM3 (0-0.2) Potassium Level 3.1 MEQ/L (3.5-5.1) HDL Cholesterol 34.2 MG/DL (40.0-60.0) Test 01/14/17 06:28 Potassium Level 2.9 MEQ/L (3.5-5.1) Blood Urea Nitrogen 2 MG/DL (7-18) Creatinine 0.49 MG/DL (0.50-1.00) Random Glucose 112 MG/DL (74-106) Calcium Level 8.3 MG/DL (8.5-10.1) Magnesium Level 1.4 MG/DL (1.5-2.5) Total Bilirubin 1.9 MG/DL (0.2-1.0) Aspartate Amino Transf 47 U/L (15-37) (AST/SGOT) Alanine Aminotransferase 75 U/L (10-53) (ALT/SGPT) Total Protein 5.8 GM/DL (6.4-8.2) Albumin 2.7 GM/DL (3.4-5.0) Imaging Last Impressions Chest X-Ray 01/12/17212 Signed Impressions: Service Date/Time: Thursday, January 12, 2017 02:53 - CONCLUSION: No acute disease. Derek Trinidad MD Chest CT 01/12/17212 Signed Impressions: Service Date/Time: Thursday, January 12, 2017 03:50 - CONCLUSION: 1. No acute findings within the thorax. Dependent atelectasis in the lungs. See abdomen CT. Derek Trinidad MD Abdomen/Pelvis CT 01/12/17 0213 Signed Impressions: Service Date/Time: Thursday, January 12, 2017 03:50 - CONCLUSION: 1. Left lower lateral nondisplaced rib fracture possibly subacute. 2. Peripancreatic edema and fluid most characteristic of acute pancreatitis. Gallbladder is mildly distended. Small amount of free fluid in the abdomen and pelvis. No free air. Derek Trinidad MD Abdomen Ultrasound 01/12/17 0000 Signed Impressions: Service Date/Time: Thursday, January 12, 2017 20:53 - CONCLUSION: Pericholecystic and peripancreatic free fluid. Abnormal pancreas with mild main pancreatic duct prominence similar to that seen on CT characteristic of acute pancreatitis. Distended gallbladder without evidence of wall thickening or cholelithiasis. No evidence of biliary obstructive disease. Abnormal appearing liver characteristic of advanced steatosis. Jaleel Pena MD PE at Discharge GENERAL: This is a well-nourished, well-developed patient, in no apparent distress. CARDIOVASCULAR: Regular rate and rhythm without murmurs, gallops, or rubs. RESPIRATORY: Clear to auscultation. Breath sounds equal bilaterally. No wheezes , rales, or rhonchi. GASTROINTESTINAL: Abdomen soft, non-tender, nondistended. Normal active bowel sounds MUSCULOSKELETAL: Extremities without clubbing, cyanosis, or edema. NEURO: Alert & Oriented x4 to person, place, time, situation. Moves all ext x4 Pt update on day of discharge Patient seen today in follow-up for acute pancreatitis. Abdominal pain resolved. Patient tolerating diet. Hypomagnesemia and hypokalemia are treated. Discharge plans discussed with patient she is agreeable Hospital Course This patient is a 46-year-old female with significant amount of alcohol consumption who came in with the first episode of pancreatitis. Pancreatitis is associated with her sepsis. Patient did respond well to IV hydration and pain medication. She required Ativan and Librium for alcohol withdrawal.She was discharged home to follow-up with her primary care provider. She did have a fall on admission which was notable for rib fractures. Pt Condition on Discharge: Good Discharge Disposition: Discharge Home Discharge Time: > 30 minutes Discharge Instructions DIET: Follow Instructions for: As Tolerated, No Restrictions Activities you can perform: Regular-No Restrictions Follow up Referrals: PCP Follow-up - 1 Week with nima New Medications: Chlordiazepoxide (Chlordiazepoxide) 10 Mg Cap 10 MG PO TID PRN Anxiety #30 Ref 0 CAP Oxycodone (Oxycodone) 5 Mg Tab 5 MG PO Q4H PRN PAIN SCALE 3 TO 5 #30 TAB Pantoprazole (Pantoprazole) 40 Mg Tab 40 MG PO DAILY dyspepsia #14 TAB Continued Medications: Alprazolam (Xanax) 0.5 Mg Tab 0.5 MG PO TID Ref 0 TAB Citalopram (Celexa) 40 Mg Tab 40 MG PO DAILY Control Depression #30 Ref 0 TAB Meloxicam (Mobic) 7.5 Mg Tab 15 MG PO DAILY Pain Ref 0 TAB Methocarbamol (Robaxin) 750 Mg Tab 750 MG PO Q8HR Muscle Spasm #21 Ref 0 TAB Omeprazole (Omeprazole) 20 Mg Tab 20 MG PO DAILY #30 Ref 0 TAB Valacyclovir (Valtrex) 500 Mg Tab 500 MG PO TID PRN COLD SORE #90 Ref 0 TAB Zolpidem (Ambien) 10 Mg Tab 10 MG PO HS PRN INSOMNIA Ref 0 TAB Melissa Coon MD Jan 14, 2017 10:55
[2017-01-15] MEDS ORDERED: THIAMINE HCL 100 MG TAB PO SCH (09:00)
[2017-05-01] MEDS ORDERED: VITACAP7 PO (10:57)
[2017-05-01] MEDS ORDERED: ALPR0.5T3 PO (10:57)
[2017-05-01] MEDS ORDERED: MOBI7.5T PO (11:38)
== END 2017-01-14 11:17 | disposition home or self-care (01) | DRG 439 ==
LOC: PHED 01:52 → PHEDA 04:55 → PH3B 06:21
PROVIDERS: ADMIT Hospitalist; ATTEND Hospitalist
DX: K85.20 Alcohol induced acute pancreatitis without necrosis or infection (principal); R65.10 Systemic inflammatory response syndrome (SIRS) of non-infectious origin without acute organ dysfunction; E87.1 Hypo-osmolality and hyponatremia; F10.239 Alcohol dependence with withdrawal, unspecified; S22.32XA Fracture of one rib, left side, initial encounter for closed fracture; F41.9 Anxiety disorder, unspecified; G47.00 Insomnia, unspecified; F32.9 Major depressive disorder, single episode, unspecified; W01.0XXA Fall on same level from slipping, tripping and stumbling without subsequent striking against object, initial encounter; Y92.009 Unspecified place in unspecified non-institutional (private) residence as the place of occurrence of the external cause
CPT/HCPCS: 71010; 71260; 74177; 76700; 80053; 80061; 81001; 82550; 82552; 82948; 83605; 83690; 83735; 84484; 84702; 85025; 85610; 85730; 86850; 86900; 86901; 87040; 93005; 94150; 96361; 96374; 96375; J2060; J2270; J2405; J2543; J3411; J3480; J7030; J7040; Q9967

== ENCOUNTER 2017-02-22 22:13 | Emergency (ER) | payer OTHER ==
[~2017-02-22] VITALS: Ht 162.6 cm; Wt 55.0 kg
[~2017-02-22 22:13] MED LIST changes: -ADDE30TA PO; +AMBI10TA PO; +CHLO10CA2 PO; -IBUP400T20 PO; +OXYC-392 PO; +PANT40TA3 PO; +VALT500T PO
[2017-02-22 22:35] VITALS: BP 128/78; PULSE 88; RESP 18; TEMP 98.8; O2SAT 98
[2017-02-22 22:42] VITALS: BP 128/78; PULSE 94; RESP 18; O2SAT 97
[2017-02-22 22:49] VITALS: RESP 18; O2SAT 98
--- NOTE | 2017-02-22 22:54 | PD ---
HPI Chief Complaint: Abdominal Pain Time Seen by Provider: 22:44 Travel History International Travel<30 days: No Contact w/Intl Traveler<30days: No Traveled to known affect area: No History of Present Illness HPI The patient is a 46 year old female who presents to the [facility] emergency department with a history of midepigastric abdominal pain that she reports began today. She reports that the pain began after she drank a glass of wine when she was fired from her job. 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 The patient was reportedly placed under custody related to a DUI. She then began to complain of the midepigastric abdominal pain. She reports the pain is sharp in character and 7 out of 10 in severity. She denies any nausea or vomiting. She reports that yesterday she did have a few episodes of diarrhea, however that is not unusual for her prior to starting her menstrual cycle which she started today. The patient reports that she has a history of pancreatitis that was initially diagnosed approximately 2 months ago. She was admitted to the hospital for a few days at the [facility]. The patient denies any recent fevers, cough, congestion, neck pain, chest pain, shortness of breath, urinary symptoms, or neurologic symptoms. [facility] Past Medical History Narrative Medical The patient's past medical history is significant for pancreatitis, insomnia, history of recent rib fractures with associated pain, history of depression, anxiety, history of asthma. Arthritis: Yes Asthma: Yes Anxiety: Yes Depression: Yes Cancer: No Cardiovascular Problems: No Diabetes: No Diminished Hearing: No Endocrine: No Gastrointestinal Disorders: Yes (pancreatitis) GERD: Yes Genitourinary: Yes Immune Disorder: No Musculoskeletal: Yes Neurologic: Yes Psychiatric: Yes Reproductive: No Respiratory: Yes Migraines: Yes Seizures: No Tetanus Vaccination: Unknown ?: Not LMP: 02/22/2017 : 1 Para: 1 Past Surgical History Narrative Surgical The patient denies any past surgical history. Surgical History: No Previous Surgery Other Surgery: Yes (BLADDER STRETCH AT AGE 2) Social History Alcohol Use: Yes ("MAYBE ONCE OR TWICE WEEKLY" STATED 01/12/17) Tobacco Use: No Substance Use: No Allergies-Medications (Allergen,Severity, Reaction): Coded Allergies: Hydrocodone (Unverified Allergy, Mild, 02/22/17) STATES MAKES HER FEEL "WIRED" Uncoded Allergies: CHAR (Allergy, Severe, 02/22/17) PT STATES UNKNOWN Reported Meds & Prescriptions Reported Meds & Active Scripts Active Chlordiazepoxide (Chlordiazepoxide HCl) 10 Mg Cap 10 Mg PO TID PRN Reported Ambien (Zolpidem Tartrate) 10 Mg Tab 10 Mg PO HS PRN Valtrex (Valacyclovir HCl) 500 Mg Tab 500 Mg PO TID PRN Xanax (Alprazolam) 0.5 Mg Tab 0.5 Mg PO TID Celexa (Citalopram Hydrobromide) 40 Mg Tab 40 Mg PO DAILY Mobic (Meloxicam) 7.5 Mg Tab 15 Mg PO DAILY Review of Systems Except as stated in HPI: all other systems reviewed are Neg General / Constitutional: No: Fever Eyes: No: Visual changes HENT: No: Headaches Cardiovascular: No: Chest Pain or Discomfort Respiratory: No: Shortness of Breath Gastrointestinal: Positive: Diarrhea, Abdominal Pain, Changes in Bowel Habits, Indigestion, No: Nausea, Vomiting, Loss of Appetite Genitourinary: No: Dysuria Musculoskeletal: No: Pain Skin: No Rash Neurologic: No: Weakness, Focal Abnormalities, Change in Mentation, Slurred Speech, Sensory Disturbance Psychiatric: No: Depression Endocrine: No: Polydipsia Hematologic/Lymphatic: No: Easy Bruising Physical Exam Narrative General: The patient is well-developed well-nourished female in no acute distress. Head and Neck exam: Head is normocephalic atraumatic. Eyes: EOMI, pupils are equal round and reactive to light. Nose: Midline septum with pink mucous membranes Mouth: Dentition unremarkable. Moist mucus membranes. Posterior oropharynx is not erythematous. No tonsillar hypertrophy. Uvula midline. Airway patent. Neck: No palpable lymphadenopathy. No nuchal rigidity. No thyromegaly. Cardiovascular: Regular rate and rhythm without murmurs, gallops, or rubs. Lungs: Clear to auscultation bilaterally. No wheezes, rhonchi, or rales. Abdomen: Soft, with tenderness to palpation along the midepigastric area, no other tenderness on palpation of the other quadrants of the abdomen. No guarding, rebound, or rigidity. Negative Treichlers sign. No tenderness on palpation of McBurney's point. Normal bowel sounds are audible. Extremities: No clubbing, cyanosis, or edema. 2+ pulses in all 4 extremities. No calf tenderness on palpation. Back: No spinous process tenderness to palpation. No costovertebral angle tenderness to palpation. Neurologic Exam: Grossly nonfocal. The patient has slightly slurred speech with an odor of alcohol about her. Skin Exam: No rash noted. Intact skin that is warm and dry. Data Data Last Documented VS Vital Signs Date Time Temp Pulse Resp B/P Pulse Ox O2 Delivery O2 Flow Rate FiO2 02/22/17 22:49 18 98 Room Air 02/22/17 22:42 94 128/78 02/22/17 22:35 98.8 Orders Complete Blood Count With Diff (02/22/17 22:45) Comprehensive Metabolic Panel (02/22/17 22:45) C-Reactive Protein (Crp) (02/22/17 22:45) Lipase (02/22/17 22:45) Urinalysis - C+S If Indicated (02/22/17 22:45) Beta Hcg (Quant/Titer) (02/22/17 22:45) Chest, Single Ap (02/22/17 22:45) Iv Access Insert/Monitor (02/22/17 22:45) Ecg Monitoring (02/22/17 22:45) Oximetry (02/22/17 22:45) Drug Screen, Random Urine (02/22/17 22:45) Alcohol (Ethanol) (02/22/17 22:45) Sodium Chlor 0.9% 1000 Ml Inj (Ns 1000 M (02/22/17 23:00) Ondansetron Inj (Zofran Inj) (02/22/17 23:00) Pantoprazole Inj (Protonix Inj) (02/22/17 23:00) Labs Laboratory Tests Test 02/22/17 23:20 White Blood Count 10.2 TH/MM3 Red Blood Count 4.92 MIL/MM3 Hemoglobin 15.8 GM/DL Hematocrit 46.7 % Mean Corpuscular Volume 95.1 FL Mean Corpuscular Hemoglobin 32.1 PG Mean Corpuscular Hemoglobin 33.8 % Concent Red Cell Distribution Width 12.7 % Platelet Count 314 TH/MM3 Mean Platelet Volume 8.7 FL Neutrophils (%) (Auto) 61.6 % Lymphocytes (%) (Auto) 23.8 % Monocytes (%) (Auto) 5.2 % Eosinophils (%) (Auto) 8.8 % Basophils (%) (Auto) 0.6 % Neutrophils # (Auto) 6.3 TH/MM3 Lymphocytes # (Auto) 2.4 TH/MM3 Monocytes # (Auto) 0.5 TH/MM3 Eosinophils # (Auto) 0.9 TH/MM3 Basophils # (Auto) 0.1 TH/MM3 CBC Comment DIFF FINAL Differential Comment Sodium Level 142 MEQ/L Potassium Level 4.4 MEQ/L Chloride Level 104 MEQ/L Carbon Dioxide Level 25.4 MEQ/L Anion Gap 13 MEQ/L Blood Urea Nitrogen 7 MG/DL Creatinine 0.54 MG/DL Estimat Glomerular Filtration 122 ML/MIN Rate Random Glucose 98 MG/DL Calcium Level 9.0 MG/DL Total Bilirubin 0.3 MG/DL Aspartate Amino Transf 38 U/L (AST/SGOT) Alanine Aminotransferase 48 U/L (ALT/SGPT) Alkaline Phosphatase 65 U/L C-Reactive Protein LESS THAN 0.29 MG/DL Total Protein 7.8 GM/DL Albumin 4.0 GM/DL Lipase 146 U/L Human Chorionic Gonadotropin, LESS THAN 1 Quant MIU/ML Ethyl Alcohol Level 178 MG/DL MDM Medical Decision Making Medical Screen Exam Complete: Yes Emergency Medical Condition: Yes Medical Record Reviewed: Yes Interpretation(s) Last Impressions Chest X-Ray 02/22/175 Signed Impressions: Service Date/Time: Wednesday, February 22, 2017 22:44 - CONCLUSION: No acute disease. Fortunato Vergara MD Differential Diagnosis Acute pancreatitis, versus alcohol related gastritis, versus peptic ulcer disease, versus malingering Narrative Course During the course of the patients emergency department visit, the patients history, examination, and differential diagnosis were reviewed with the patient. The patient had IV access obtained and blood work sent for analysis. The patient was placed on a call center nurse with oximetry and blood pressure monitoring per The patient was provided normal saline 1 L IV fluid bolus. The patient was given Protonix 40 mg IV. The patients laboratory studies were reviewed and remarkable for a white count of 10.2, hemoglobin 15.8, platelets 314 with eosinophils 8.8, CMP all 4 and AST of 38, C-reactive protein is less than 0.29, lipase 146, test is negative, alcohol level [id number]. Radiology studies were reviewed and remarkable for a chest x-ray that shows no evidence of free air, no other acute abnormality. The patient is resting comfortably and feels better, is alert and in no distress. The patients results and examination findings were discussed with the patient. The repeat examination is unremarkable and benign. The history, exam, diagnostic testing, and current condition do not suggest any significant pathology to warrant further testing, continued ED treatment, admission, or surgical evaluation at this point. The vital signs have been stable. The patient does not have uncontrollable pain, intractable vomiting, or other significant symptoms. The patient's condition is stable and appropriate for discharge. The patient will pursue further outpatient evaluation with a primary care physician or other designated or consulting physician as indicated in the discharge instructions. The patient expressed understanding and was agreeable with this plan. Diagnosis Primary Impression: Abdominal pain Qualified Code: R10.13 - Epigastric pain Additional Impression: Alcohol intoxication Qualified Code: F10.129 - Alcohol intoxication, with unspecified complication Referrals: Primary Care Physician Patient Instructions: Abdominal Pain (ED), Alcohol Intoxication (ED), General Instructions Additional Instructions: avoid alcohol in the future. Med/Other Pt SpecificInfo: No Change to Meds Disposition: 01 DISCHARGE HOME Condition: Stable Karmen Simpson MD Feb 22, 2017 22:54
[2017-02-22] MEDS ORDERED: PANTOPRAZOLE SODIUM 40 MG VIAL IV PUSH ONE (23:00)
[2017-02-22] MEDS ORDERED: SODIUM CHLOR 0.9% 1000 ML INJ 1,000 ML IV ONE (23:00)
[2017-02-22] MEDS ORDERED: ONDANSETRON HCL 4 MG/2 ML VIAL IV ONE (23:00)
--- NOTE | 2017-02-22 23:04 | RADRPT ---
EXAM DATE/TIME: 02/22/2017 22:44 [facility] COMPARISON: CHEST SINGLE AP, January 12, 2017, 2:53. INDICATIONS : Chest pain. MEDICAL HISTORY : None. SURGICAL HISTORY : None. ENCOUNTER: Initial ACUITY: 1 day PAIN SCORE: 0/10 LOCATION: Bilateral chest FINDINGS: A single view of the chest demonstrates the lungs to be symmetrically aerated without evidence of mas s, infiltrate or effusion. The cardiomediastinal contours are unremarkable. Osseous structures are intact. CONCLUSION: No acute disease. Fortunato Vergara MD on February 22, 2017 at 23:02 Board Certified Radiologist. This report was verified electronically.
[2017-02-22 23:35] LABS: AUTOMATED NEUTROPHIL # 6.3 TH/MM3 (1.8-7.7); BASOPHIL # 0.1 TH/MM3 (0-0.2); BASOPHIL % 0.6 % (0.0-2.0); EOSINOPHIL # 0.9 TH/MM3 (0-0.4); EOSINOPHIL % 8.8 % (0.0-4.0); HEMATOCRIT 46.7 % (35.0-46.0); HEMO FLAGS DIFF FINAL; LYMPH % 23.8 % (9.0-44.0); LYMPHOCYTE # 2.4 TH/MM3 (1.0-4.8); MEAN CELL VOLUME 95.1 FL (80.0-100.0); MEAN CORPUSCULAR HEMOGLOBIN 32.1 PG (27.0-34.0); MEAN CORPUSCULAR HGB CONC 33.8 % (32.0-36.0); MONO % 5.2 % (0.0-8.0); NEUT % 61.6 % (16.0-70.0); PLATELET COUNT 314 TH/MM3 (150-450); RED BLOOD COUNT 4.92 MIL/MM3 (4.00-5.30); RED CELL DISTRIBUTION WIDTH 12.7 % (11.6-17.2); WHITE BLOOD COUNT 10.2 TH/MM3 (4.0-11.0)
[2017-02-22 23:49] LABS: ANION GAP 13 MEQ/L (5-15); AST (GOT) 38 U/L (15-37); BICARBONATE 25.4 MEQ/L (21.0-32.0); BLOOD UREA NITROGEN 7 MG/DL (7-18); CHLORIDE 104 MEQ/L (98-107); GLOMERULAR FILTRATION RATE 122 ML/MIN (>89); POTASSIUM 4.4 MEQ/L (3.5-5.1); SODIUM (NA) 142 MEQ/L (136-145)
[2017-02-22 23:56] LABS: ALKALINE PHOSPHATASE 65 U/L (45-117); ALT (GPT) 48 U/L (10-53); BETA HCG QUANT LESS THAN 1 MIU/ML (0-5); TOTAL BILIRUBIN ADULT 0.3 MG/DL (0.2-1.0)
[2017-05-01] MEDS ORDERED: ALPR0.5T3 PO (10:57)
[2017-05-01] MEDS ORDERED: VITACAP7 PO (10:57)
[2017-05-01] MEDS ORDERED: MOBI7.5T PO (11:38)
== END 2017-02-23 01:37 | disposition home or self-care (01) ==
LOC: NEPE 22:13
DX: R10.13 Epigastric pain (principal); F10.129 Alcohol abuse with intoxication, unspecified; M19.90 Unspecified osteoarthritis, unspecified site; F41.9 Anxiety disorder, unspecified; F32.9 Major depressive disorder, single episode, unspecified; J45.909 Unspecified asthma, uncomplicated; K21.9 Gastro-esophageal reflux disease without esophagitis; Z79.899 Other long term (current) drug therapy
CPT/HCPCS: 71010; 80053; 80307; 83690; 84702; 85025; 86140; 96374; 96375; 99284; C9113; J2405; J7030

== ENCOUNTER 2017-04-14 13:15 | Emergency (ER) | payer OTHER ==
[~2017-04-14] VITALS: Ht 162.6 cm; Wt 60.0 kg
[~2017-04-14 13:15] MED LIST changes: -OMEP20TA PO; -OXYC-392 PO; -PANT40TA3 PO; -ROBA750T PO
[2017-04-14 13:25] VITALS: BP 109/84; PULSE 94; RESP 16; TEMP 98.3; O2SAT 96
[2017-04-14] MEDS ORDERED: PRIL10PO (13:33)
[2017-04-14 13:41] VITALS: BP 109/81; PULSE 94; RESP 22; TEMP 98.4; O2SAT 96
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
[2017-04-15] MEDS ORDERED: PREV30CA11 PO (08:37)
[2017-04-15] MEDS ORDERED: TYLE325T PO (08:38)
[2017-05-01] MEDS ORDERED: ALPR0.5T3 PO (10:57)
[2017-05-01] MEDS ORDERED: VITACAP7 PO (10:57)
[2017-05-01] MEDS ORDERED: MOBI7.5T PO (11:38)
== END 2017-04-14 16:15 | disposition home or self-care (01) ==
LOC: NEPD 13:15
DX: S16.1XXA Strain of muscle, fascia and tendon at neck level, initial encounter (principal); M25.512 Pain in left shoulder; M25.552 Pain in left hip; F10.120 Alcohol abuse with intoxication, uncomplicated; V49.40XA Driver injured in collision with unspecified motor vehicles in traffic accident, initial encounter; Y90.8 Blood alcohol level of 240 mg/100 ml or more
CPT/HCPCS: 70450; 71020; 72125; 73030; 73502; 80307; 84703; 99285; L0150

== ENCOUNTER 2017-04-14 22:14 | Inpatient (IN) | payer OTHER ==
[~2017-04-14] VITALS: Ht 162.6 cm; Wt 59.9 kg
[~2017-04-14 22:14] MED LIST changes: +PRIL10PO
[2017-04-14 22:37] VITALS: BP 138/78; PULSE 110; RESP 18; TEMP 98.6; O2SAT 98
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
[2017-04-14 23:08] LABS: AUTOMATED NEUTROPHIL # 7.7 TH/MM3 (1.8-7.7); BASOPHIL # 0.1 TH/MM3 (0-0.2); BASOPHIL % 0.4 % (0.0-2.0); EOSINOPHIL # 0.5 TH/MM3 (0-0.4); EOSINOPHIL % 4.5 % (0.0-4.0); HEMATOCRIT 39.9 % (35.0-46.0); HEMO FLAGS DIFF FINAL; LYMPH % 21.6 % (9.0-44.0); LYMPHOCYTE # 2.6 TH/MM3 (1.0-4.8); MEAN CELL VOLUME 95.9 FL (80.0-100.0); MEAN CORPUSCULAR HEMOGLOBIN 31.9 PG (27.0-34.0); MEAN CORPUSCULAR HGB CONC 33.2 % (32.0-36.0); MONO % 8.8 % (0.0-8.0); NEUT % 64.7 % (16.0-70.0); PLATELET COUNT 308 TH/MM3 (150-450); RED BLOOD COUNT 4.16 MIL/MM3 (4.00-5.30); RED CELL DISTRIBUTION WIDTH 13.9 % (11.6-17.2)
[2017-04-14 23:13] LABS: ALT (GPT) 67 U/L (10-53)
[2017-04-14 23:24] LABS: ALKALINE PHOSPHATASE 74 U/L (45-117); ANION GAP 13 MEQ/L (5-15); AST (GOT) 97 U/L (15-37); BICARBONATE 22.3 MEQ/L (21.0-32.0); BLOOD UREA NITROGEN 9 MG/DL (7-18); CHLORIDE 105 MEQ/L (98-107); GLOMERULAR FILTRATION RATE 96 ML/MIN (>89); POTASSIUM 4.2 MEQ/L (3.5-5.1); SODIUM (NA) 140 MEQ/L (136-145); TOTAL BILIRUBIN ADULT 0.2 MG/DL (0.2-1.0)
[2017-04-15 01:08] LABS: AMPHETAMINE, URINE NEG (NEG); BARBITURATES, URINE NEG (NEG); COCAINE, URINE NEG (NEG)
[2017-04-15] MEDS ORDERED: ACETAMINOPHEN 325 MG TAB PO ONE ×2 (01:30→09:00)
[2017-04-15 02:02] VITALS: BP 105/78; PULSE 68; RESP 18; O2SAT 98
[2017-04-15 06:30] VITALS: BP 132/78; PULSE 68; RESP 14; O2SAT 97
[2017-04-15 08:28] VITALS: BP 129/86; PULSE 90; RESP 18; O2SAT 97
[2017-04-15] MEDS ORDERED: PREV30CA11 PO (08:37)
[2017-04-15] MEDS ORDERED: TYLE325T PO (08:38)
[2017-04-15] MEDS ORDERED: busPIRone HCL 10 MG TAB PO ONE (09:00)
[2017-04-15] MEDS: CITALOPRAM HYDROBROMIDE 40 MG TAB PO SCH (09:09)
[2017-04-15 12:17] VITALS: BP 137/92; PULSE 74; RESP 20; TEMP 98.6; O2SAT 100
[2017-04-15] MEDS ORDERED: IBUPROFEN 800 MG TAB PO ONE (13:30)
[2017-04-15 13:50] VITALS: BP 155/94; PULSE 79; RESP 18; O2SAT 99
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
[2017-04-15] MEDS ORDERED: MAGNESIUM HYDROXIDE SUSP 30 ML CUP PO PRN (18:30)
[2017-04-15] MEDS ORDERED: ALUMINUM/MAGNESIUM/SIMETH 30 ML CUP PO PRN (18:30)
[2017-04-15] MEDS: LORazepam 1 MG TAB PO PRN ×2 (18:36→23:29)
[2017-04-15 18:45] VITALS: BP 154/90; PULSE 68; RESP 18; O2SAT 100
[2017-04-15] MEDS ORDERED: LORazepam 2 MG/ML VIAL IV PUSH PRN ×4 (19:00)
[2017-04-15] MEDS ORDERED: FLUMAZENIL 0.5 MG/5 ML VIAL IV PUSH PRN (19:00)
[2017-04-15] MEDS: ACETAMINOPHEN 325 MG TAB PO PRN ×2 (19:14→21:48)
[2017-04-16 02:20] VITALS: BP 155/8; PULSE 65; RESP 16; TEMP 97.8; O2SAT 100
[2017-04-16 05:27] VITALS: BP 129/85; PULSE 70; RESP 16; TEMP 99; O2SAT 99
[2017-04-16 08:19] LABS: ANION GAP 9 MEQ/L (5-15); BICARBONATE 27.2 MEQ/L (21.0-32.0); BLOOD UREA NITROGEN 2 MG/DL (7-18); CHLORIDE 102 MEQ/L (98-107); GLOMERULAR FILTRATION RATE 100 ML/MIN (>89); HDL CHOLESTEROL 79.2 MG/DL (40.0-60.0); LDL CHOLESTEROL 89 MG/DL (0-99); POTASSIUM 3.5 MEQ/L (3.5-5.1); SODIUM (NA) 138 MEQ/L (136-145)
[2017-04-16] MEDS: CITALOPRAM HYDROBROMIDE 40 MG TAB PO SCH (08:28)
[2017-04-16] MEDS: LORazepam 1 MG TAB PO PRN (08:32)
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
[2017-04-16 11:39] LABS: ALT (GPT) 54 U/L (10-53); AST (GOT) 44 U/L (15-37)
[2017-04-16 11:42] LABS: ALKALINE PHOSPHATASE 68 U/L (45-117); INDIRECT BILIRUBIN 0.6 MG/DL (0.0-0.8); TOTAL BILIRUBIN ADULT 0.8 MG/DL (0.2-1.0)
[2017-04-16 11:51] LABS: BHCG SCREEN QUALITATIVE LESS THAN 1 MIU/ML (0-5)
[2017-04-16] MEDS: chlordiazePOXIDE 25 MG CAP PO SCH ×3 (12:35→20:26)
[2017-04-16] MEDS: THIAMINE HCL 100 MG TAB PO SCH (12:35)
[2017-04-16] MEDS: FOLIC ACID 1 MG TAB PO SCH (12:35)
[2017-04-16 16:00] VITALS: BP 140/91; PULSE 81; RESP 16; TEMP 97.4; O2SAT 100
[2017-04-16 17:09] LABS: HEMOGLOBIN A1a 1.2 %; HEMOGLOBIN A1b 0.8 %; HEMOGLOBIN Ao 86.7 %; HEMOGLOBIN F 0.6 %; HEMOGLOBIN P3 3.2 %
[2017-04-16] MEDS: PRAZOSIN HCL 1 MG CAP PO SCH (20:26)
[2017-04-17] MEDS: LORazepam 1 MG TAB PO PRN ×2 (02:05→18:39)
[2017-04-17 05:35] VITALS: BP 149/79; PULSE 69; RESP 16; TEMP 97.9; O2SAT 97
[2017-04-17] MEDS: chlordiazePOXIDE 25 MG CAP PO SCH ×4 (09:23→20:40)
[2017-04-17] MEDS: FOLIC ACID 1 MG TAB PO SCH (09:23)
[2017-04-17] MEDS: THIAMINE HCL 100 MG TAB PO SCH (09:23)
[2017-04-17] MEDS: FLUoxetine HCL 20 MG CAP PO SCH (09:23)
[2017-04-17] MEDS: LORazepam 2 MG TAB PO PRN ×2 (09:45→16:07)
--- NOTE | 2017-04-17 12:57 | HHI.PYPN ---
Subjective Remarks Patient seen and examined with counselor. Chart reviewed. Case discussed with nursing staff. Patient is on Librium taper and has additionally required 5 mg of oral Ativan in the last 24 hours by DINORAH. On my examination today, the patient presents as mildly tremulous and diaphoretic. Mydriasis is noted. She does complain of some ongoing subjective alcohol withdrawal. Mood remains somewhat low and she complains of feeling very anxious. Sleep is reportedly poor and she says that her mind is racing. She did experience fewer nightmares with the addition of prazosin. Denies any active suicidal ideation. No side effects from medications. No physical complaints otherwise. Review of Systems Except as stated in HPI: all other systems reviewed are Neg Objective Alert: Yes [place]: Person (once again oriented 4) Mood: Depressed Affect: Blunted Memory Intact: Comment (intact on clinical exam) Hallucinations: Other (denies audiovisual hallucinations) Delusions: No Delusion Type: Other (no delusional material) Suicidal: Ideation (denies suicidal ideation) Homicidal: Ideation (no homicidal ideation) Insight/Judgment Fair Remarks Motor exam as noted above. No other motoric abnormalities noted. Thought process linear. No evidence of delirium. Grooming and hygiene fair. Labs Labs reviewed. TSH slightly elevated. Transaminitis improving. Vitals/IOs Vital Signs Date Time Temp Pulse Resp B/P Pulse Ox O2 Delivery O2 Flow Rate FiO2 04/17/17 05:35 97.9 69 16 149/79 97 04/15/17 18:45 Room Air Assessment & Plan Problem List: (1) Major depressive disorder, recurrent severe without psychotic features ICD Code: F33.2 (2) EtOH dependence ICD Code: F10.20 Assessment & Plan Given ongoing withdrawal symptoms, I will arrest Librium taper at current dose for an additional day and then resume tapering. I will continue patient's Prozac and prazosin as ordered. Prozac could be tapered over the weekend to target mood. I will add Benadryl as needed for sleep. Continue to monitor on the inpatient unit. Continue other medications and care as ordered. Justification for Cont. Inpt. Complicating conditions, namely withdrawal. Medication changes. High risk for decompensation in a less restrictive environment. Monitoring for impairments in safety. Discharge Planning Patient continues to desire residential rehabilitation for her alcohol issues. Counselor to explore the feasibility of this vis--vis her insurance. Request HC Surrog/Guard Advoc?: No Problem Qualifiers (1) EtOH dependence: Qualified Code: F10.230 - Alcohol dependence with uncomplicated withdrawal Dillan Victoria MD Apr 17, 2017 12:57
[2017-04-17 17:11] VITALS: BP 128/79; PULSE 80; RESP 17; TEMP 98.4; O2SAT 99
[2017-04-17] MEDS: PRAZOSIN HCL 1 MG CAP PO SCH (20:41)
[2017-04-18] MEDS: LORazepam 1 MG TAB PO PRN ×2 (05:11→10:55)
[2017-04-18 06:16] VITALS: BP 145/90; PULSE 86; RESP 20; TEMP 97.8; O2SAT 96
[2017-04-18] MEDS: FLUoxetine HCL 20 MG CAP PO SCH (08:29)
[2017-04-18] MEDS: THIAMINE HCL 100 MG TAB PO SCH (08:29)
[2017-04-18] MEDS: chlordiazePOXIDE 25 MG CAP PO SCH ×4 (08:30→21:34)
[2017-04-18] MEDS: FOLIC ACID 1 MG TAB PO SCH (08:30)
[2017-04-18 09:06] LABS: AUTOMATED NEUTROPHIL # 8.2 TH/MM3 (1.8-7.7); BASOPHIL % 0.4 % (0.0-2.0); EOSINOPHIL # 0.5 TH/MM3 (0-0.4); EOSINOPHIL % 5.1 % (0.0-4.0); HEMATOCRIT 40.3 % (35.0-46.0); HEMO FLAGS DIFF FINAL; MEAN CELL VOLUME 94.4 FL (80.0-100.0); MEAN CORPUSCULAR HEMOGLOBIN 32.6 PG (27.0-34.0); MEAN CORPUSCULAR HGB CONC 34.5 % (32.0-36.0); MONO % 4.1 % (0.0-8.0); NEUT % 80.4 % (16.0-70.0); PLATELET COUNT 271 TH/MM3 (150-450); RED BLOOD COUNT 4.27 MIL/MM3 (4.00-5.30); RED CELL DISTRIBUTION WIDTH 14.4 % (11.6-17.2); WHITE BLOOD COUNT 10.2 TH/MM3 (4.0-11.0)
[2017-04-18 09:44] LABS: FREE T4 0.81 NG/DL (0.76-1.46)
[2017-04-18] MEDS: LORazepam 2 MG TAB PO PRN ×2 (14:05→21:34)
--- NOTE | 2017-04-18 15:10 | HHI.PYPN ---
Subjective Remarks Pt seen and discussed with staff. She is on CIWA protocol and librium taper for alcohol withdrawal. Today she has required a total of 4mg of Ativan for breakthrough withdrawal symptoms. She remains dysphoric. She reports intrusive suicidal ideations but states that she "doesn't want to do it." No SI/HI. Objective Alert: Yes [place]: Person (once again oriented 4) Mood: Depressed Affect: Blunted Memory Intact: Comment (intact on clinical exam) Hallucinations: Other (denies audiovisual hallucinations) Delusions: No Delusion Type: Other (no delusional material) Suicidal: Ideation (denies suicidal ideation) Homicidal: Ideation (no homicidal ideation) Insight/Judgment poor Labs Test 04/18/17 08:22 White Blood Count 10.2 TH/MM3 Red Blood Count 4.27 MIL/MM3 Hemoglobin 13.9 GM/DL Hematocrit 40.3 % Mean Corpuscular Volume 94.4 FL Mean Corpuscular Hemoglobin 32.6 PG Mean Corpuscular Hemoglobin 34.5 % Concent Red Cell Distribution Width 14.4 % Platelet Count 271 TH/MM3 Mean Platelet Volume 8.5 FL Neutrophils (%) (Auto) 80.4 % Lymphocytes (%) (Auto) 10.0 % Monocytes (%) (Auto) 4.1 % Eosinophils (%) (Auto) 5.1 % Basophils (%) (Auto) 0.4 % Neutrophils # (Auto) 8.2 TH/MM3 Lymphocytes # (Auto) 1.0 TH/MM3 Monocytes # (Auto) 0.4 TH/MM3 Eosinophils # (Auto) 0.5 TH/MM3 Basophils # (Auto) 0.0 TH/MM3 CBC Comment DIFF FINAL Differential Comment Free Thyroxine 0.81 NG/DL Thyroid Stimulating Hormone 1.520 uIU/ML 3rd Gen Vitals/IOs Vital Signs Date Time Temp Pulse Resp B/P Pulse Ox O2 Delivery O2 Flow Rate FiO2 04/18/17 06:16 97.8 86 20 145/90 96 04/15/17 18:45 Room Air Assessment & Plan Problem List: (1) Major depressive disorder, recurrent severe without psychotic features ICD Code: F33.2 (2) EtOH dependence ICD Code: F10.20 Assessment & Plan Continue current tx plan. Continue CIWA. Continue fluoxetine for depression. Justification for Cont. Inpt. impairments in safety and complicating medical conditions Request HC Surrog/Guard Advoc?: No Problem Qualifiers (1) EtOH dependence: Qualified Code: F10.230 - Alcohol dependence with uncomplicated withdrawal Nat Snowden MD Apr 18, 2017 15:10
[2017-04-18 18:26] VITALS: BP 136/108; PULSE 78; RESP 18; TEMP 97.4; O2SAT 98
[2017-04-18] MEDS: PRAZOSIN HCL 1 MG CAP PO SCH (21:34)
[2017-04-19] MEDS: ACETAMINOPHEN 325 MG TAB PO PRN ×4 (05:51→21:05)
[2017-04-19 06:21] VITALS: BP 149/90; PULSE 73; RESP 18; TEMP 97.7; O2SAT 100
[2017-04-19] MEDS: chlordiazePOXIDE 25 MG CAP PO SCH ×3 (08:37→18:21)
[2017-04-19] MEDS: THIAMINE HCL 100 MG TAB PO SCH (08:37)
[2017-04-19] MEDS: FLUoxetine HCL 20 MG CAP PO SCH (08:37)
[2017-04-19] MEDS: FOLIC ACID 1 MG TAB PO SCH (08:37)
--- NOTE | 2017-04-19 17:29 | HHI.PYPN ---
Subjective Remarks Pt seen and discussed with staff. Alcohol withdrawal symptoms have lessened and CIWA scores have decreased. She reports that anxiety and depression are better. She denies SI today. No HI. Objective Alert: Yes [place]: Person, Place, Date, Situation Mood: Depressed Affect: Restricted Memory Intact: Comment (intact on clinical exam) Hallucinations: Other (none) Delusions: No Delusion Type: Other (no delusional material) Suicidal: Ideation (denies suicidal ideation) Homicidal: Ideation (no homicidal ideation) Insight/Judgment poor Vitals/IOs Vital Signs Date Time Temp Pulse Resp B/P Pulse Ox O2 Delivery O2 Flow Rate FiO2 04/19/17 06:21 97.7 73 18 149/90 100 04/15/17 18:45 Room Air Assessment & Plan Problem List: (1) Major depressive disorder, recurrent severe without psychotic features ICD Code: F33.2 (2) EtOH dependence ICD Code: F10.20 Assessment & Plan Continue current tx plan. Estimated LOS: days Justification for Cont. Inpt. monitoring for safety and complicating medical conditions. Request HC Surrog/Guard Advoc?: No Problem Qualifiers (1) EtOH dependence: Qualified Code: F10.230 - Alcohol dependence with uncomplicated withdrawal Nat Snowden MD Apr 19, 2017 17:29
[2017-04-19 18:13] VITALS: BP 148/60; PULSE 78; RESP 19; TEMP 98.3; O2SAT 100
[2017-04-19] MEDS: LORazepam 1 MG TAB PO PRN (19:41)
[2017-04-19] MEDS: PRAZOSIN HCL 1 MG CAP PO SCH (20:59)
[2017-04-19 21:03] VITALS: BP 155/96; PULSE 70
[2017-04-19] MEDS: diphenhydrAMINE HCL 50 MG CAP PO PRN (21:34)
[2017-04-20 06:00] VITALS: BP 125/80; PULSE 72; RESP 16; TEMP 97.9; O2SAT 99
[2017-04-20] MEDS: THIAMINE HCL 100 MG TAB PO SCH (08:49)
[2017-04-20] MEDS: FLUoxetine HCL 20 MG CAP PO SCH (08:49)
[2017-04-20] MEDS: chlordiazePOXIDE 25 MG CAP PO SCH ×2 (08:49→21:08)
[2017-04-20] MEDS: FOLIC ACID 1 MG TAB PO SCH (08:49)
[2017-04-20] MEDS: LORazepam 1 MG TAB PO PRN (09:21)
--- NOTE | 2017-04-20 11:24 | HHI.PYPN ---
Subjective Remarks Patient seen and examined with nurse. Chart reviewed. Patient received 2 mg of Ativan by CIWA in the 24 hours prior to my evaluation and remains on Librium taper. Case discussed with nursing staff who reports that patient is improving and her affect is brighter. On my examination today, the patient complains of some ongoing anxiety and occasional nightmares although she does note that she is sleeping better. She has no complaints of withdrawal symptoms. Mood remains a little bit down but no suicidal ideation. Counselor joins us at this point and we have a lengthy discussion with the patient regarding chemical dependency follow-up options, although with the patient's insurance her options for residential rehabilitation are apparently quite limited. Patient does have an extensive family history of mental illness and so we discussed the possibility of a naltrexone trial to reduce the risk of heavy drinking so long as her LFTs continue to improve. Patient does note that she is using the Ativan by CIWA at times for anxiety, and we have discussed replacing this with Atarax as a [id number] alternative. Review of Systems Except as stated in HPI: all other systems reviewed are Neg Objective Alert: Yes [place]: Person, Place, Date, Situation Mood: Anxious (improving), Depressed (improving) Affect: Restricted (more reactive) Memory Intact: Comment (remains intact) Hallucinations: Other (no AVH) Delusions: No Delusion Type: Other (no delusions) Suicidal: Ideation (denies SI) Homicidal: Ideation (no HI) Insight/Judgment Fair Remarks No abnormal motor movements noted. No signs of withdrawal noted. Thought process linear. Grooming and hygiene good. Speech within normal limits for rate, tone and volume. Labs Labs reviewed. Vitals/IOs Vital Signs Date Time Temp Pulse Resp B/P Pulse Ox O2 Delivery O2 Flow Rate FiO2 04/20/17 06:00 97.9 72 16 125/80 99 Intake and Output 04/19/17 04/19/17 04/20/17 08:00 16:00 00:00 Intake Total 600 ml Balance 600 ml Assessment & Plan Problem List: (1) Major depressive disorder, recurrent severe without psychotic features ICD Code: F33.2 (2) EtOH dependence ICD Code: F10.20 Assessment & Plan Titrate Prozac to 30 mg daily for management of depression and anxiety. Continue prazosin as ordered. Add Atarax as needed for anxiety. Check LFTs and if these continue to improve, to consider naltrexone trial. Risks and benefits of all medication changes discussed with the patient. Continue Librium taper. CIWA with Ativan for breakthrough withdrawal. Continue to monitor on the inpatient unit. Continue other medications and care as ordered. Justification for Cont. Inpt. Medication changes in process. High risk for decompensation pending psychiatric stabilization. Discharge Planning Pending psychiatric stabilization. I anticipate discharge by of this week barring some clinical deterioration. Request HC Surrog/Guard Advoc?: No Problem Qualifiers (1) EtOH dependence: Qualified Code: F10.230 - Alcohol dependence with uncomplicated withdrawal Dillan Victoria MD Apr 20, 2017 11:24
[2017-04-20] MEDS: ACETAMINOPHEN 325 MG TAB PO PRN (11:27)
[2017-04-20] MEDS ORDERED: FLUoxetine HCL 10 MG CAP PO ONE (11:30)
[2017-04-20 16:00] VITALS: BP 145/92; PULSE 72; RESP 18; TEMP 98.7; O2SAT 100
[2017-04-20 19:44] VITALS: BP 143/90; PULSE 86
[2017-04-20] MEDS: PRAZOSIN HCL 1 MG CAP PO SCH (21:08)
[2017-04-20] MEDS: diphenhydrAMINE HCL 50 MG CAP PO PRN (22:51)
[2017-04-21 05:27] VITALS: BP 111/64; PULSE 86; RESP 16; TEMP 98; O2SAT 97
[2017-04-21 08:08] LABS: ALT (GPT) 30 U/L (10-53); AST (GOT) 17 U/L (15-37)
[2017-04-21 08:10] LABS: ALKALINE PHOSPHATASE 59 U/L (45-117); INDIRECT BILIRUBIN 0.2 MG/DL (0.0-0.8); TOTAL BILIRUBIN ADULT 0.3 MG/DL (0.2-1.0)
[2017-04-21] MEDS ORDERED: FLUoxetine HCL 10 MG CAP PO SCH (09:00)
[2017-04-21] MEDS: chlordiazePOXIDE 25 MG CAP PO SCH (09:25)
[2017-04-21] MEDS: FOLIC ACID 1 MG TAB PO SCH (09:25)
[2017-04-21] MEDS: THIAMINE HCL 100 MG TAB PO SCH (09:25)
--- NOTE | 2017-04-21 12:07 | HHI.PYPN ---
Subjective Remarks Patient seen and examined. Chart reviewed. Case discussed in treatment team with counselor, nurse and occupational therapist. Nursing staff reports that the patient articulates some ongoing depressive thoughts and some intermittent suicidal ideation. Counselor reports that there are no feasible residential rehabilitation programs that patient's insurance will cover. Patient will therefore be referred for ambulatory chemical dependency treatment. Occupational therapist has noted improvement in patient's mood and increased participation in groups. On my examination today, the patient seems to be in better spirits. She does not verbalize any suicidal ideation for me. Her LFTs had normalized and she remains agreeable to a trial of naltrexone. She would also like to increase her Prozac to 40 mg prior to discharge. No side effects from medications. We discuss chemical dependency follow-up options at this point. No physical complaints. No complaints of withdrawal symptoms. Review of Systems Except as stated in HPI: all other systems reviewed are Neg Objective Alert: Yes [place]: Person, Place, Date, Situation Mood: Depressed (continues to improve) Affect: Appropriate Memory Intact: Comment (intact on clinical exam) Hallucinations: Other (No AVH) Delusions: No Delusion Type: Other (No delusional material) Suicidal: Ideation (No SI) Homicidal: Ideation (No HI) Insight/Judgment Poor Remarks No abnormal motor movements noted. No signs of alcohol withdrawal noted. Thought processes linear. Grooming and hygiene good. Labs Test 04/21/17 07:02 Total Bilirubin 0.3 MG/DL Direct Bilirubin LESS THAN 0.1 MG/DL Indirect Bilirubin 0.2 MG/DL Aspartate Amino Transf 17 U/L (AST/SGOT) Alanine Aminotransferase 30 U/L (ALT/SGPT) Alkaline Phosphatase 59 U/L Total Protein 6.3 GM/DL Albumin 3.2 GM/DL Labs reviewed. LFTs have normalized. Vitals/IOs Vital Signs Date Time Temp Pulse Resp B/P Pulse Ox O2 Delivery O2 Flow Rate FiO2 04/21/17 05:27 98.0 86 16 111/64 97 Assessment & Plan Problem List: (1) Major depressive disorder, recurrent severe without psychotic features ICD Code: F33.2 (2) EtOH dependence ICD Code: F10.20 Assessment & Plan Initiate naltrexone 50 mg daily for management of alcohol dependence. Titrate Prozac to 40 mg daily for mood starting tomorrow. Complete Librium taper and discontinue CIWA with Ativan as the patient has no residual signs of withdrawal. Continue to monitor on the inpatient unit. Continue other medications at the care as ordered. Justification for Cont. Inpt. Medication changes in process Discharge Planning Home with outpatient psychiatric follow-up and ambulatory chemical dependency follow-up, likely at the end of the week. Request HC Surrog/Guard Advoc?: No Problem Qualifiers (1) EtOH dependence: Qualified Code: F10.20 - Uncomplicated alcohol dependence Dillan Victoria MD Apr 21, 2017 12:07
[2017-04-21] MEDS: NALTREXONE HCL 50 MG TAB PO SCH ×2 (13:56→14:25)
--- NOTE | 2017-04-21 14:50 | PD.TTN ---
Present for Treatment Team Treatment Team Staff: Provider (Dr Victoria), Nurse (Bubba), Psych Therapist ( Chelle ), Occupational Therapist (Mitul) Patient Problems 1. Discharge planning 2. Medication compliance 3. Knowledge deficit 4. Lack of coping skills Progress Toward Goals Provider Input: Doctor discussed adding a new medication Naltraxone for management of her alcoholism and increasing her SSRI Doctor feels that patient should remain until Thursday for med adjustment Nurse Input: Pt is compliant and feels it is safe to discontinue the CIWA Pt remains depressed but not suicidal however shares she had some ideations off and on but no plan Psych Therapist Input: Pt has been pleasant interacting with others and enjoys talking to staff, at times she shares her past issues and talks about her struggle with depression Pt feels better since being here and feels that she can be helped with groups and outpatient follow up by [facility] Occupational Therapist Input: Toño Truong pt attends select groups and needs some cuing to participate Chelle Mccray [facility] Apr 21, 2017 14:50
[2017-04-21] MEDS ORDERED: HYDROCORTISONE 1% CREAM 30 GM TOPICAL PRN (16:00)
[2017-04-21 16:18] VITALS: BP 120/73; PULSE 87; RESP 16; TEMP 98.3; O2SAT 99
[2017-04-21 20:05] VITALS: BP 180/103; PULSE 66
[2017-04-21] MEDS: hydrOXYzine HCL 50 MG TAB PO PRN (20:12)
[2017-04-21 20:30] VITALS: BP_SYST 155; BP_SYST 156; BP_SYST 166; BP_DIAS 100; BP_DIAS 107; BP_DIAS 95; PULSE 79; O2SAT 97
[2017-04-21] MEDS: PRAZOSIN HCL 1 MG CAP PO SCH (20:38)
[2017-04-22 05:30] VITALS: BP 111/62; PULSE 70; RESP 16; TEMP 97.1; O2SAT 98
[2017-04-22] MEDS: THIAMINE HCL 100 MG TAB PO SCH (08:57)
[2017-04-22] MEDS: FOLIC ACID 1 MG TAB PO SCH (08:57)
[2017-04-22] MEDS: NALTREXONE HCL 50 MG TAB PO SCH (08:57)
[2017-04-22] MEDS: FLUoxetine HCL 20 MG CAP PO SCH (08:57)
[2017-04-22] MEDS: chlordiazePOXIDE 25 MG CAP PO SCH (08:57)
[2017-04-22] MEDS: ACETAMINOPHEN 325 MG TAB PO PRN (12:24)
--- NOTE | 2017-04-22 12:54 | HHI.PYPN ---
Subjective Remarks Patient seen and examined with counselor and nurse. Chart reviewed. Patient did have an episode of elevated blood pressure overnight for unclear reasons. Case discussed with nursing staff reports that the patient was somewhat irritable this morning but was able to joke about it. On my examination today, the patient admits that she awoke in a bad mood. She says this was at least in part due to the fact that her sleep was disturbed by the janitorial staff trying to clean the floors in the public improvement inspector. Affect remains reactive and the patient does indeed make light of her unpleasant mood this morning. No SI or HI voiced. She tried the Atarax for anxiety to good effect. Tolerating psychotropics well otherwise without side effects. No physical complaints. She cannot recall any situational issues that may have contributed to her noted hypertension. She did not have any symptoms of hypertensive urgency or emergency at the time. Review of Systems Except as stated in HPI: all other systems reviewed are Neg Objective Alert: Yes [place]: Person, Place, Date, Situation Mood: Calm Affect: Appropriate Memory Intact: Comment (remains intact on clinical examination) Hallucinations: Other (no audiovisual hallucinations) Delusions: No Delusion Type: Other (no delusions) Suicidal: Ideation (no suicidal ideation) Homicidal: Ideation (no homicidal ideation) Insight/Judgment Fair Remarks No abnormal motor movements noted. No signs of alcohol withdrawal noted. Thought process linear. Grooming and hygiene good. Labs Labs reviewed. Vitals/IOs Vital Signs Date Time Temp Pulse Resp B/P Pulse Ox O2 Delivery O2 Flow Rate FiO2 04/22/17 05:30 97.1 70 16 111/62 98 Intake and Output 04/21/17 04/21/17 04/22/17 08:00 16:00 00:00 Intake Total 480 ml Balance 480 ml Assessment & Plan Problem List: (1) Major depressive disorder, recurrent severe without psychotic features ICD Code: F33.2 (2) EtOH dependence ICD Code: F10.20 Assessment & Plan Continue Prozac 40 mg daily. Continue prazosin 1 mg at bedtime. Continued naltrexone as ordered. Continue Atarax as needed for anxiety. Continue to monitor on the inpatient unit overnight to ensure that the patient does not have another episode of significant hypertension. Continue other medications and care as ordered. Justification for Cont. Inpt. Complicating conditions, namely episode of elevated blood pressure overnight etiology unclear. Discharge Planning Monitor overnight. Anticipate discharge tomorrow, Thday barring some clinical deterioration. Request HC Surrog/Guard Advoc?: No Problem Qualifiers (1) EtOH dependence: Qualified Code: F10.20 - Uncomplicated alcohol dependence Dillan Victoria MD Apr 22, 2017 12:54
[2017-04-22] MEDS: PRAZOSIN HCL 1 MG CAP PO SCH (21:31)
[2017-04-22] MEDS: hydrOXYzine HCL 50 MG TAB PO PRN (21:31)
[2017-04-22] MEDS: diphenhydrAMINE HCL 50 MG CAP PO PRN (21:31)
[2017-04-22 21:57] VITALS: BP 175/90; PULSE 60; RESP 17; TEMP 98; O2SAT 98
[2017-04-23 06:13] VITALS: BP 113/59; PULSE 78; RESP 16; TEMP 97.8; O2SAT 99
[2017-04-23] MEDS: THIAMINE HCL 100 MG TAB PO SCH (08:30)
[2017-04-23] MEDS: NALTREXONE HCL 50 MG TAB PO SCH (08:30)
[2017-04-23] MEDS: FLUoxetine HCL 20 MG CAP PO SCH (08:30)
[2017-04-23] MEDS: FOLIC ACID 1 MG TAB PO SCH (08:30)
[2017-04-23] MEDS ORDERED: TAMSULOSIN HCL 0.4 MG CAP PO SCH (09:00)
[2017-04-23] MEDS ORDERED: HYDR50TA94 PO (14:06)
[2017-04-23] MEDS ORDERED: NALT50TA3 PO (14:06)
[2017-04-23] MEDS ORDERED: PROZ40CA PO (14:06)
--- NOTE | 2017-04-23 14:07 | HHI.DS ---
Psychiatry Discharge Summary Inpatient Psychiatric care?: Yes Advance Directive: Yes Mental Health AdvanceDirective: No Health Care Proxy: No Admission Admission Date April 15, 2017 at 18:20 Admission Diagnosis: (1) Major depressive disorder, recurrent severe without psychotic features ICD Code: F33.2 (2) EtOH dependence ICD Code: F10.20 Brief History Ms. Hartley is a 46-year-old female with a history of depression and anxiety who presents under a Card act by law enforcement alleging that she held a knife to her neck in a suicidal gesture. Patient was evaluated by the psychiatric nurse practitioner who recommended admission to the inpatient psychiatric unit. Of note, patient's alcohol level was elevated at 320 on presentation here, and the patient does have a history of significantly elevated alcohol levels in the past. Patient seen and examined with counselor, Luz. Chart reviewed. Case discussed with nursing staff. On my examination today, the patient presents as quite dysphoric. She describes her mood as depressed. She endorses sleep disturbance including nightmares possibly related to her traumatic history. She endorses low energy and lack of motivation as well as social withdrawal. She endorses hopeless feelings. Decreased self-care, and the patient notes that she showers only every several days. Patient reports that she made superficial cuts on her forearms and threatened to cut her neck because she was upset about her ongoing alcohol use. See chemical dependency history, below. No hypomanic or manic symptoms either now or in the history that I can obtain. She denies current suicidal or homicidal ideation at this time but does say that she is feeling "really depressed." No clear history of audiovisual hallucinations. No delusional beliefs. Besides that nightmares, there also is some hyperarousal suggestive of post-traumatic stress. The remainder of the psychiatric ROS is negative. Complains of some tremulousness, hot and cold sensation. Past psychiatric history: The patient reports psychiatric diagnoses as noted above. She is presently prescribed Celexa and Xanax by her primary care doctor and has seen psychiatrists in the past but can no longer afford to see one. She has never been seen by a psychotherapist. She denies a history of psychiatric admissions but does report a chronic history of cutting behavior and has also tried to strangle herself in the past. Patient denies any other previous antidepressant trials. She has been on the Celexa for about 6 years and no longer feels that it is working. Tobacco Use In Past 30 Days: No Tobacco Past 30 Days Alcohol Use: 4 or More Times Per Week Hospital Course Patient was admitted to a locked, inpatient psychiatric unit. Appropriate precautions were in place throughout patient's hospital stay. Patient was seen and examined daily on the unit by psychiatry and also visited by counselor. Medications were adjusted. Patient was started on Prozac for mood, prazosin for traumatic nightmares, and naltrexone for alcohol dependence. The patient was detoxified from alcohol with Librium and Ativan for breakthrough withdrawal symptoms without incident. Patient had improvement in her presenting psychiatric symptomatology during the course of her hospital stay. There was no evidence of any suicidality or homicidality on the inpatient unit. Counselor worked with the patient to arrange for chemical dependency and psychiatric follow-up. Hospitalist was consulted prior to discharge as the patient had had 2 paroxysmal episodes of elevated blood pressure in the 2 days prior to discharge. I have discussed the case with Dr. Estrada from the hospitalist team, and he recommends discontinuing the prazosin as there may be a rebound hypertension affect. On the day of discharge: Patient seen and examined with nurse. Chart reviewed. Case discussed with nursing staff. On my examination today, the patient is in good spirits and is requesting discharge from the inpatient psychiatric unit. Mood is improved versus admission and I can elicit no depressive or hypomanic/manic symptoms. She denies any suicidal or homicidal ideation, intent or plan. Future oriented. No audiovisual hallucinations. No evident delusions. No side effects from medications. I did discuss discontinuing the prazosin with the patient, and we agree that the therapeutic benefit no longer outweighs the risks and so we will discontinue the prazosin on discharge. Patient to continue Prozac and naltrexone on discharge. She will also be provided with Atarax as needed for anxiety. No physical complaints. No withdrawal symptoms. Weighing the acute, chronic, and protective factors and based on the available evidence, I workers compensation legal secretary to a reasonable degree of medical certainty that the patient is at low imminent risk of harm to self or others from a mental illness as defined under the Card act and her level of function is adequate for outpatient care. Patient has maximized benefit from this inpatient psychiatric hospital stay and will be discharged today in stable condition with psychiatric and chemical dependency follow-up as arranged by counselor. Patient is also to follow-up with primary care. I have counseled the patient regarding warning signs for need to return to the psychiatric emergency room as part of a general safety plan. Results Blood Pressure 113 / 59 Vital Signs Date Time Temp Pulse Resp B/P Pulse Ox O2 Delivery O2 Flow Rate FiO2 04/23/17 06:13 97.8 78 16 113/59 99 Laboratory Tests Test 04/21/17 07:02 Total Protein 6.3 GM/DL (6.4-8.2) Albumin 3.2 GM/DL (3.4-5.0) Summary of Procedures None done Imaging None done Pending results at discharge: No Medications # of Antipsychotic meds at D/C: 0 Approp Antipsych med options 1 - Minimum of three failed multiple trials of monotherapy. 2 - Documented plan to taper to monotherapy due to previous use of multiple meds OR cross-taper in progress at D/C. 3 - Documentation of augmentation of Clozapine. 4 - Justification other than those listed in allowable values 1-3, document here : Discharge Discharge Date: Apr 23, 2017 Discharge Diagnosis: (1) Major depressive disorder, recurrent severe without psychotic features Diagnosis: Principal (stabilized and improved) ICD Code: F33.2 (2) EtOH dependence Diagnosis: Secondary (detoxified) ICD Code: F10.20 GAF on discharge is 60 Mental Status Exam at Disch Patient is casually dressed. She is well groomed. She is awake and alert and oriented 3. No abnormal motor movements noted. No signs of withdrawal noted. Speech is within normal limits for rate, tone and volume. Language and fund of knowledge seem average. Focus and concentration are intact. Memory is intact on clinical exam. Mood is improved versus admission. Affect is full and reactive. Thought process linear. No loosening of associations. No evident delusions. No audiovisual hallucinations. Denies suicidal or homicidal ideation, intent or plan. Insight and judgment are fair. Pt Condition on Discharge: Stable Discharge Disposition: Discharge Home Discharge Instructions Diet Instructions: As Tolerated, No Restrictions Activities you can perform: Weight Bearing as Pham Scheduled Appointment: as per counselor's notes New Medications: Fluoxetine (Prozac) 40 Mg Cap 40 MG PO DAILY Mental Health Days 15 Ref 1 CAP Hydroxyzine HCl (Hydroxyzine HCl) 50 Mg Tab 50 MG PO Q6H PRN ANXIETY Days 15 Ref 1 TAB Naltrexone (Naltrexone) 50 Mg Tab 50 MG PO DAILY Chemical dependency Days 15 Ref 1 TAB Continued Medications: Lansoprazole (Prevacid) 30 Mg Capdr 30 MG PO DAILY Ref 0 CAP Meloxicam (Mobic) 7.5 Mg Tab 15 MG PO DAILY Pain Ref 0 TAB Valacyclovir (Valtrex) 500 Mg Tab 500 MG PO TID PRN COLD SORE #90 Ref 0 TAB Discontinued Medications: Acetaminophen (Tylenol) 325 Mg Tab 650 MG PO Q4H PRN PAIN SCALE 1 TO 10 Ref 0 TAB Alprazolam (Xanax) 0.5 Mg Tab 0.5 MG PO TID Ref 0 TAB Citalopram (Celexa) 40 Mg Tab 40 MG PO DAILY Control Depression #30 Ref 0 TAB Zolpidem (Ambien) 10 Mg Tab 10 MG PO HS PRN INSOMNIA Ref 0 TAB Discharge Time > 30 minutes Discharge/Advance Care Plan Health Problems: (1) Major depressive disorder, recurrent severe without psychotic features (2) EtOH dependence Goals to promote your health * To prevent worsening of your condition and complications * To maintain your health at the optimal level Directions to meet your goals Take your medications as prescribed Follow your dietary instruction Follow activity as directed Keep your appointments as scheduled Take your immunizations and boosters as scheduled If your symptoms worsen call your PCP, if no PCP go to Urgent Care Center or Emergency Room For 08/06 questions related to your inpatient stay or results of tests pending at discharge, please contact Dr. Dillan Victoria at Smoking is Dangerous to Your Health. Avoid second hand smoking Problem Qualifiers (1) EtOH dependence: Qualified Code: F10.20 - Uncomplicated alcohol dependence Dillan Victoria MD Apr 23, 2017 14:07
--- NOTE | 2017-04-23 14:49 | PD.CONS ---
HPI Service [facility] Hospitalists Consult Requested By Psychiatric services Reason for Consult Labile hypertension Medical management Primary Care Physician Diagnoses: History of Present Illness Written by Anali Cook PA-C acting as scribe for Dr. Estrada on 04/23/17 at 14 :35. This is a 46-year-old female with a past medical history significant for history of pancreatitis and sepsis 01/12/17, anxiety, depression and alcohol abuse who presented to the ED under Card act due to performing suicidal gestures while intoxicated but was admitted voluntarily to the psychiatric unit. Hospitalist services have been consulted for labile hypertension. Since her admission, patient was started on Prazosin for nightmares and Naltrexone as an alcohol deterrent. Patient seen and examined today. Patient's blood pressures have indeed been labile with BP measurements ranging from 180/103 to 111/62. Patient denies any history of hypertension and states that normally her blood pressure is 120/60. She reports that her elevations in blood pressure , only in the afternoon. She denies any associated symptoms such as changes, headache or dizziness. Denies any other complaints including fever, chills, nausea, vomiting, cough, shortness of breath, chest pain, abdominal pain, dysuria, diarrhea or constipation. She is planning for discharge today. She has follow-up scheduled with her primary care physician upon her discharge as well as with Fawad Palomares to continue with her efforts at alcohol sobriety. Review of Systems Except as stated in HPI: all other systems reviewed are Neg Past Family Social History Allergies: Coded Allergies: Hydrocodone (Unverified Allergy, Mild, 04/15/17) STATES MAKES HER FEEL "WIRED" Uncoded Allergies: BEETS (Allergy, Severe, 02/22/17) PT STATES UNKNOWN Past Medical History History of pancreatitis 12/2016 Anxiety Alcohol abuse Past Surgical History She denies any previous surgical history Reported Medications Acetaminophen (Tylenol)325 Mg [id number] Mg PO Q4H PRN (PAIN SCALE 1 TO 10) Ref 0 04/15/17 Lansoprazole (Prevacid)30 Mg Capdr30 Mg PO DAILY Ref 0 04/15/17 Zolpidem (Ambien)10 Mg Tab10 Mg PO HS PRN (INSOMNIA) Ref 0 01/12/17 Valacyclovir (Valtrex)500 Mg Myd137 Mg PO TID PRN (COLD SORE) #90 TAB Ref 0 01/12/17 Alprazolam (Xanax)0.5 Mg Tab0.5 Mg PO TID Ref 0 11/06/16 Citalopram (Celexa)40 Mg Tab40 Mg PO DAILY #30 TAB Ref 0 11/06/16 Meloxicam (Mobic)7.5 Mg Tab15 Mg PO DAILY Ref 0 11/06/16 Active Ordered Medications Current Medications Medications (Trade) Dose Ordered Sig/Osman Route Start Time Stop Time Status Last Admin (Tylenol) 650 mg Q4H PRN PO 04/15/17 18:30 04/22/17 12:24 (Milk Of Magnesia Liq) 30 ml DAILY PRN PO 04/15/17 18:30 (Mag-Al Plus Susp Liq) 30 ml Q6H PRN PO 04/15/17 18:30 04/19/17 11:15 (Vitamin B1) 100 mg DAILY PO 04/16/17 11:11 04/23/17 08:30 (Folate) 1 mg DAILY PO 04/16/17 11:11 04/23/17 08:30 (Benadryl) 50 mg HS PRN PO 04/17/17 16:45 04/20/17 22:51 (Atarax) 50 mg Q6H PRN PO 04/20/17 11:30 04/22/17 21:31 (PROzac) 40 mg DAILY PO 04/22/17 09:00 04/23/17 08:30 (Revia) 50 mg DAILY PO 04/21/17 12:07 04/23/17 08:30 (Hydrocortisone 1% Cream) 1 applic DAILY PRN TOPICAL 04/21/17 16:00 Family History Mother, coronary artery disease s/p CABG 4 at age 48, peripheral vascular disease, diabetes, COPD Father, murdered when she was 9 Social History Patient denies any tobacco use. Patient does admit to being an alcoholic and states she drinks wine only. Her last alcoholic beverage was 8-9 days ago. She reports a history of marijuana in the remote past. Physical Exam Vital Signs Vital Signs Date Time Temp Pulse Resp B/P Pulse Ox O2 Delivery O2 Flow Rate FiO2 04/23/17 06:13 97.8 78 16 113/59 99 04/22/17 21:57 98.0 60 17 175/90 98 Physical Exam GENERAL: This is a well-nourished, well-developed patient, in no apparent distress. Awake and alert. Pleasant and cooperative. SKIN: No rashes, ecchymoses or lesions. Cool and dry. HEAD: Atraumatic. Normocephalic. No temporal or scalp tenderness. EYES: Pupils equal round and reactive. Extraocular motions intact. No scleral icterus. No injection or drainage. ENT: Nose without bleeding, purulent drainage or septal hematoma. Throat without erythema, tonsillar hypertrophy or exudate. Uvula midline. Airway patent. NECK: Trachea midline. Supple, nontender, no meningeal signs. CARDIOVASCULAR: Regular rate and rhythm without murmurs, gallops, or rubs. RESPIRATORY: Clear to auscultation. Breath sounds equal bilaterally. No wheezes , rales, or rhonchi. GASTROINTESTINAL: Abdomen soft, non-tender, nondistended. No hepato-splenomegaly , or palpable masses. No guarding. MUSCULOSKELETAL: Extremities without clubbing, cyanosis, or edema. No joint tenderness, effusion, or edema noted. No calf tenderness. NEUROLOGICAL: Awake and alert. Able to move all extremities. No focal neurologic findings appreciated. Normal speech. Assessment and Plan Assessment and Plan 46-year-old female with a past medical history significant for history of pancreatitis and sepsis 01/12/17, anxiety, depression and alcohol abuse who presented to the ED under Card act due to performing suicidal gestures while intoxicated but was admitted voluntarily to the psychiatric unit. Hospitalist services have been consulted for labile hypertension. Major depression - Management per psychiatry Labile hypertension - BP currently 113/59 - Patient has no previous history of hypertension. Suspect this is due to a medication side effect, most likely Prazosin which is causing rebound hypertension. Discussed as much with Dr. Victoria who plans to discontinue the medication -Discussed with patient purchasing a blood pressure cuff for home use and keep a BP log to take with her to her PCP followup appointment Alcohol abuse - Patient to be discharged today in follow-up with [facility] - Continue naltrexone as prescribed by psychiatry DVT prophylaxis - Patient is a ventilatory Thank you very kindly for this consultation. This note was transcribed by ham Cook PA-C. I, Dr. Jesus Estrada personally performed the history, physical exam, and medical decision making; and confirmed the accuracy of the information in the transcribed note. Authenticated by Dr. Jesus Estrada on 04/23/17 at 15:08. Anali Cook Apr 23, 2017 14:49 Sourav Estrada DO Apr 23, 2017 15:09
[2017-05-01] MEDS ORDERED: VITACAP7 PO (10:57)
[2017-05-01] MEDS ORDERED: ALPR0.5T3 PO (10:57)
[2017-05-01] MEDS ORDERED: MOBI7.5T PO (11:38)
== END 2017-04-23 15:10 | disposition home or self-care (01) | DRG 885 ==
LOC: NEPD 22:14 → NEDA 04-15 18:20 → H260 04-15 20:29
PROVIDERS: ADMIT Psychiatry & Neurology Psychiatry; ATTEND Psychiatry & Neurology Psychiatry
DX: F33.2 Major depressive disorder, recurrent severe without psychotic features (principal); F10.239 Alcohol dependence with withdrawal, unspecified; F10.24 Alcohol dependence with alcohol-induced mood disorder; F43.10 Post-traumatic stress disorder, unspecified; F41.9 Anxiety disorder, unspecified; Z91.5 Personal history of self-harm; Z81.8 Family history of other mental and behavioral disorders; Y90.8 Blood alcohol level of 240 mg/100 ml or more; M19.90 Unspecified osteoarthritis, unspecified site; J45.909 Unspecified asthma, uncomplicated; K21.9 Gastro-esophageal reflux disease without esophagitis
CPT/HCPCS: 70450; 71020; 72125; 73030; 73502; 80048; 80053; 80061; 80076; 80307; 83036; 84439; 84443; 84703; 85025; 99285; L0150; Q0163

== ENCOUNTER 2017-07-15 08:17 | Emergency (ER) | payer OTHER ==
[~2017-07-15] VITALS: Ht 162.6 cm; Wt 58.0 kg
[~2017-07-15 08:17] MED LIST changes: -ALPR.5 PO; +ALPR0.5T3 PO; -AMBI10TA PO; -CELE40TA PO; -CHLO10CA2 PO; +HYDR50TA94 PO; +NALT50TA3 PO; +PREV30CA11 PO; -PRIL10PO; +PROZ40CA PO; +VITACAP7 PO
[2017-07-15 08:27] VITALS: BP 167/101; PULSE 71; RESP 16; TEMP 97.6; O2SAT 99
[2017-07-15 08:39] VITALS: BP 167/101; PULSE 71; RESP 16; TEMP 97.6; O2SAT 99
[2017-07-15] MEDS ORDERED: SODIUM CHLOR 0.9% 1000 ML INJ 1,000 ML IV SCH (08:40)
[2017-07-15] MEDS ORDERED: FAMOTIDINE 20 MG/2 ML VIAL IV PUSH SCH (08:45)
[2017-07-15] MEDS ORDERED: SODIUM CHLORIDE 0.9% FLUSH 10 ML FLUSH IV FLUSH PRN (08:45)
[2017-07-15] MEDS ORDERED: ONDANSETRON HCL 4 MG/2 ML VIAL IVP ONE (08:45)
[2017-07-15] MEDS ORDERED: MORPHINE SULFATE 4 MG/ML INJ IV PUSH ONE (08:45)
--- NOTE | 2017-07-15 08:51 | PD ---
HPI . Abdominal pain Chief Complaint: Abdominal pain Time Seen by Provider: 08:40 Travel History International Travel<30 days: No Contact w/Intl Traveler<30days: No History of Present Illness HPI This patient presents with a chief complaint of abdominal pain. Onset 2 days ago. It is epigastric pain. She rates it 8/10. She states that it feels like previous episodes of pancreatitis. Pain has been unrelieved by Prilosec. It is associated with nausea but no vomiting. No fever. She reports a green stool today. She states that her pancreatitis is related to alcohol abuse. She states that her last intake of alcohol was about 2 weeks ago. PFSH Past Medical History Arthritis: No Asthma: Yes Autoimmune Disease: No Anxiety: Yes Depression: Yes Cardiovascular Problems: No (per pt) Chemotherapy: No Chest Pain: No Congestive Heart Failure: No COPD: No Cerebrovascular Accident: No Diabetes: No (per pt) Diminished Hearing: No Endocrine: No Gastrointestinal Disorders: Yes (pancreatitis) GERD: No Genitourinary: No Headaches: No (per pt) Hiatal Hernia: Yes Immune Disorder: No Kidney Stones: No Musculoskeletal: No Neurologic: No Psychiatric: Yes (per pt depression) Reproductive: No Respiratory: No Migraines: No Radiation Therapy: No Renal Failure: No Seizures: No (per pt) Sleep Apnea: No Thyroid Disease: No Ulcer: No : 1 Para: 1 Past Surgical History Abdominal Surgery: No Arteriovenous Shunt: No Cardiac Surgery: No Ear Surgery: No Endocrine Surgery: No Eye Surgery: No Genitourinary Surgery: Yes (BLADDER) Gynecologic Surgery: No Joint Replacement: No Oral Surgery: No Thoracic Surgery: No Other Surgery: Yes (BLADDER STRETCH AT AGE 2) Social History Alcohol Use: Yes (Deneis that she drinks every day.) Tobacco Use: No Substance Use: No Allergies-Medications (Allergen,Severity, Reaction): Coded Allergies: hydrocodone (Unverified Allergy, Mild, 07/15/17) STATES MAKES HER FEEL "WIRED" Uncoded Allergies: BEETS (Allergy, Severe, 02/22/17) PT STATES UNKNOWN Reported Meds & Prescriptions Reported Meds & Active Scripts Active Mobic (Meloxicam) 7.5 Mg Tab 15 Mg PO DAILY Please take as little as possible to protect your kindeys. Naltrexone (Naltrexone HCl) 50 Mg Tab 50 Mg PO DAILY 15 Days Hydroxyzine HCl 50 Mg Tab 50 Mg PO Q6H PRN 15 Days Prozac (Fluoxetine HCl) 40 Mg Cap 40 Mg PO DAILY 15 Days Reported Gabapentin 300 Mg Cap 300 Mg PO TID B Complex (B-Complex Vitamins) 1 Cap 1 Cap PO DAILY Alprazolam 0.5 Mg Tab 0.5 Mg PO Q6H PRN Prevacid (Lansoprazole) 30 Mg Capdr 30 Mg PO DAILY Valtrex (Valacyclovir HCl) 500 Mg Tab 500 Mg PO TID PRN Review of Systems Except as stated in HPI: all other systems reviewed are Neg General / Constitutional: No: Fever, Chills Cardiovascular: Positive: Chest Pain or Discomfort Respiratory: No: Shortness of Breath Gastrointestinal: Positive: Nausea, Abdominal Pain, No: Vomiting, Diarrhea, Constipation Genitourinary: No: Urgency, Frequency, Dysuria Psychiatric: Positive: Substance Abuse Physical Exam Narrative GENERAL: Patient is awake and alert and in no acute distress. SKIN: Warm and dry. HEAD: Atraumatic. Normocephalic. EYES: Pupils equal and round. Sclerae are anicteric. ENT: No nasal bleeding or discharge. Mucous membranes pink and moist. NECK: Trachea midline. Neck is supple. CARDIOVASCULAR: Regular rate and rhythm. RESPIRATORY: No accessory muscle use. Lungs are clear with full air movement throughout. GASTROINTESTINAL: Abdomen soft. Minimal epigastric tenderness with no guarding or rebound. Normal bowel sounds. Nondistended. MUSCULOSKELETAL: No obvious deformities. No edema. NEUROLOGICAL: Awake and alert. No obvious cranial nerve deficits. Motor grossly within normal limits. Normal speech. PSYCHIATRIC: Appropriate mood and affect; insight and judgment normal. Data Data Last Documented VS Vital Signs Date Time Temp Pulse Resp B/P (MAP) Pulse Ox O2 Delivery O2 Flow Rate FiO2 07/15/17 08:39 97.6 71 16 167/101 (123) 99 07/15/17 08:27 Room Air Orders Orders Complete Blood Count With Diff (07/15/17 08:40) Comprehensive Metabolic Panel (07/15/17 08:40) Lipase (07/15/17 08:40) Lactic Acid (07/15/17 08:40) Urinalysis - C+S If Indicated (07/15/17 08:40) Iv Access Insert/Monitor (07/15/17 08:40) Morphine Inj (Morphine Inj) (07/15/17 08:45) Ondansetron Inj (Zofran Inj) (07/15/17 08:45) Sodium Chlor 0.9% 1000 Ml Inj (Ns 1000 M (07/15/17 08:40) Sodium Chloride 0.9% Flush (Ns Flush) (07/15/17 08:45) Ed Urine Pregnancytest Poc (07/15/17 08:40) Famotidine Inj (Pepcid Inj) (07/15/17 08:45) Labs Laboratory Tests Test 07/15/17 08:45 07/15/17 08:50 Urine Color YELLOW Urine Turbidity SLIGHT Urine pH 5.0 Urine Specific [place] 1.030 Urine Protein NEG mg/dL Urine Glucose (UA) NEG mg/dL Urine Ketones NEG mg/dL Urine Occult Blood NEG Urine Nitrite NEG Urine Bilirubin NEG Urine Leukocyte Esterase TRACE Urine RBC 0-3 /hpf Urine WBC 3-5 /hpf Urine Squamous Epithelial Cells > 8 /hpf Microscopic Urinalysis Comment CULT NOT INDICATED White Blood Count 9.1 TH/MM3 Red Blood Count 4.49 MIL/MM3 Hemoglobin 13.4 GM/DL Hematocrit 40.1 % Mean Corpuscular Volume 89.2 FL Mean Corpuscular Hemoglobin 29.8 PG Mean Corpuscular Hemoglobin Concent 33.4 % Red Cell Distribution Width 13.3 % Platelet Count 256 TH/MM3 Mean Platelet Volume 7.9 FL Neutrophils (%) (Auto) 77.4 % Lymphocytes (%) (Auto) 10.9 % Monocytes (%) (Auto) 3.9 % Eosinophils (%) (Auto) 7.4 % Basophils (%) (Auto) 0.4 % Neutrophils # (Auto) 7.0 TH/MM3 Lymphocytes # (Auto) 1.0 TH/MM3 Monocytes # (Auto) 0.4 TH/MM3 Eosinophils # (Auto) 0.7 TH/MM3 Basophils # (Auto) 0.0 TH/MM3 CBC Comment DIFF FINAL Differential Comment Blood Urea Nitrogen 8 MG/DL Creatinine 0.70 MG/DL Random Glucose 108 MG/DL Total Protein 7.2 GM/DL Albumin 3.7 GM/DL Calcium Level 8.4 MG/DL Alkaline Phosphatase 59 U/L Aspartate Amino Transf (AST/SGOT) 21 U/L Alanine Aminotransferase (ALT/SGPT) 43 U/L Total Bilirubin 0.7 MG/DL Sodium Level 137 MEQ/L Potassium Level 3.5 MEQ/L Chloride Level 99 MEQ/L Carbon Dioxide Level 27.0 MEQ/L Anion Gap 11 MEQ/L Estimat Glomerular Filtration Rate 90 ML/MIN Lactic Acid Level 1.1 mmol/L Lipase 3596 U/L [facility] Medical Decision Making Medical Screen Exam Complete: Yes Emergency Medical Condition: Yes Medical Record Reviewed: Yes (this patient was admitted to the psychiatric service from for depression and alcoholism. She was seen in the emergency department on 02/22 for abdominal pain and alcohol intoxication. She was admitted from for pancreatitis, sepsis and alcohol intoxication.) Differential Diagnosis Differential diagnosis of abdominal pain includes but is not limited to gastritis, pancreatitis, hepatitis, gastroenteritis, gallbladder disease, constipation, urinary retention, UTI, peptic ulcer disease, diverticulitis or appendicitis Narrative Course This patient presents with upper abdominal pain associated with nausea. She has a history of pancreatitis. IV fluids, IV analgesics and IV antiemetics have been ordered. Apparently, context is in short order. Therefore, I have ordered Pepcid. Routine abdominal pain labs have been ordered. I have not ordered any radiographic studies because I do not have any suspicion for obstruction or perforation. She has no peritoneal signs. CBC & BMP Diagram 07/15/17 08:50 Total Protein 7.2, Albumin 3.7, Calcium Level 8.4 L, Alkaline Phosphatase 59, Aspartate Amino Transf (AST/SGOT) 21, Alanine Aminotransferase (ALT/SGPT) 43, Total Bilirubin 0.7 Lipase is elevated at 3596. Lactic acid level is normal. UA is negative. The patient will be admitted for bowel rest, IV fluids and IV analgesics/ antiemetics. Since Dr. Coon does not feel that admission is needed, the patient will be discharged home on clear fluids, Percocet and Zofran. Follow with her primary care provider within the next 2 days. Physician Communication Physician Communication The case was discussed with Dr. Melissa Coon who did not feel that admission was needed. Diagnosis Primary Impression: Abdominal pain Qualified Codes: R10.13 - Epigastric pain Additional Impression: Acute pancreatitis Qualified Codes: K85.20 - Alcohol induced acute pancreatitis without necrosis or infection Referrals: Amber Crystal 2 days Patient Instructions: General Instructions, Pancreatitis (DC) Additional Instructions: Clear liquids only until pain and vomiting have completely resolved. Return here if you are unable to keep fluids and medicines down. Otherwise, see your primary care provider in 2 days. Med/Other Pt SpecificInfo: Prescription(s) given Scripts Ondansetron (Zofran) 4 Mg Tab 4 MG PO Q6HR Y for NAUSEA OR VOMITING, #12 TAB 0 Refills Prov: Cristina Knox MD 07/15/17 Oxycodone-Acetaminophen (Percocet) 5-325 mg Tab 1 TAB PO Q4H Y for PAIN, #12 TAB 0 Refills Prov: Cristina Knox MD 07/15/17 Disposition: 01 DISCHARGE HOME Condition: Stable Cristina Knox MD Jul 15, 2017 08:51
[2017-07-15 09:11] LABS: BASOPHIL % 0.4 % (0.0-2.0); EOSINOPHIL # 0.7 TH/MM3 (0-0.4); EOSINOPHIL % 7.4 % (0.0-4.0); HEMATOCRIT 40.1 % (35.0-46.0); HEMO FLAGS DIFF FINAL; LYMPH % 10.9 % (9.0-44.0); MEAN CELL VOLUME 89.2 FL (80.0-100.0); MEAN CORPUSCULAR HEMOGLOBIN 29.8 PG (27.0-34.0); MEAN CORPUSCULAR HGB CONC 33.4 % (32.0-36.0); MONO % 3.9 % (0.0-8.0); NEUT % 77.4 % (16.0-70.0); PLATELET COUNT 256 TH/MM3 (150-450); RED BLOOD COUNT 4.49 MIL/MM3 (4.00-5.30); RED CELL DISTRIBUTION WIDTH 13.3 % (11.6-17.2); WHITE BLOOD COUNT 9.1 TH/MM3 (4.0-11.0)
[2017-07-15 09:11] LABS: BLOOD, URINE NEG (NEG); GLUCOSE,URINE NEG (NEG); KETONE, URINE NEG (NEG); NITRITE,URINE NEG (NEG)
[2017-07-15 09:15] LABS: BLOOD UREA NITROGEN 8 MG/DL (7-18); GLOMERULAR FILTRATION RATE 90 ML/MIN (>89)
[2017-07-15] MEDS ORDERED: GABA300C5 PO (09:15)
[2017-07-15 09:16] LABS: CHLORIDE 99 MEQ/L (98-107); POTASSIUM 3.5 MEQ/L (3.5-5.1); SODIUM (NA) 137 MEQ/L (136-145)
[2017-07-15 09:25] LABS: URINE COLOR YELLOW (YELLW/STRAW)
[2017-07-15 09:28] LABS: COMMENT (UR) CULT NOT INDICATED; CULTURE IF INDICATED CULT NOT INDICATED; RBC, URINE 0-3 /hpf (0-3); SQUAMOUS EPITHELIAL CELL URINE > 8 /hpf (0-5)
[2017-07-15 09:47] LABS: ANION GAP 11 MEQ/L (5-15)
[2017-07-15 09:50] LABS: ALT (GPT) 43 U/L (10-53); AST (GOT) 21 U/L (15-37)
[2017-07-15 09:53] LABS: ALKALINE PHOSPHATASE 59 U/L (45-117)
[2017-07-15 09:57] LABS: TOTAL BILIRUBIN ADULT 0.7 MG/DL (0.2-1.0)
[2017-07-15] MEDS ORDERED: ZOFR4TAB PO (10:49)
[2017-07-15] MEDS ORDERED: PERC5TAB12 PO (10:49)
[2017-07-15 11:23] VITALS: BP 186/106
[2017-07-16] MEDS ORDERED: LISI-519 PO (09:35)
[2017-07-16] MEDS ORDERED: ALBUAER3 INH (09:50)
== END 2017-07-15 11:30 | disposition home or self-care (01) ==
LOC: PHED 08:17
DX: K85.20 Alcohol induced acute pancreatitis without necrosis or infection (principal)
CPT/HCPCS: 80053; 81001; 83605; 83690; 84703; 85025; 96361; 96374; 96375; 99284; J2270; J2405; J7030

== ENCOUNTER 2017-08-14 22:44 | Inpatient (IN) | payer OTHER ==
[~2017-08-14] VITALS: Ht 162.6 cm; Wt 60.0 kg
[~2017-08-14 22:44] MED LIST changes: +ALBUAER3 INH; +GABA300C5 PO; +LISI-519 PO; +PERC5TAB12 PO; +ZOFR4TAB PO
[2017-08-14 22:47] VITALS: BP 133/88; PULSE 86; RESP 14; TEMP 98.9; O2SAT 100
[2017-08-14] MEDS ORDERED: SODIUM CHLOR 0.9% 1000 ML INJ 1,000 ML IV ONE (22:48)
[2017-08-14] MEDS ORDERED: NALOXONE HCL 2 MG/2 ML VIAL IV PUSH ONE (23:00)
[2017-08-14] MEDS ORDERED: SODIUM CHLORIDE 0.9% FLUSH 10 ML FLUSH IVF PRN (23:00)
[2017-08-14 23:08] LABS: BLOOD GAS BASE EXCESS 2.8 mmol/L (-2-2); BLOOD GAS CARBOXYHEMOGLOBIN 1.3 % (0-4); BLOOD GAS HCO3 27 mmol/L (22-26); BLOOD GAS METHEMOGLOBIN 0.6 % (0-2); BLOOD GAS O2 HGB SATURATION 97 % (90-100); BLOOD GAS OXYGEN CONTENT 20.1 Vol % (12.0-20.0); BLOOD GAS PCO2 40 mmHg (38-42); BLOOD GAS PO2 124 mmHG (61-120); BLOOD GAS TOTAL HGB 14.6 G/DL (12.0-16.0); CRITICAL VALUE NO; DRAW SITE LT RADIAL; LITER FLOW 3 L/M; NUMBER OF ARTERIAL PUNCTURES 1; OXYGEN DEVICE NASAL CANNULA; STAT YES; TEMP CORR TO 98.6; ULNAR PULSE PRESENT
[2017-08-14 23:10] LABS: AUTOMATED NEUTROPHIL # 3.8 TH/MM3 (1.8-7.7); BASOPHIL % 0.4 % (0.0-2.0); EOSINOPHIL # 0.4 TH/MM3 (0-0.4); EOSINOPHIL % 5.4 % (0.0-4.0); HEMATOCRIT 44.6 % (35.0-46.0); HEMO FLAGS DIFF FINAL; LYMPH % 33.3 % (9.0-44.0); LYMPHOCYTE # 2.5 TH/MM3 (1.0-4.8); MEAN CELL VOLUME 88.5 FL (80.0-100.0); MEAN CORPUSCULAR HEMOGLOBIN 30.2 PG (27.0-34.0); MEAN CORPUSCULAR HGB CONC 34.1 % (32.0-36.0); MONO % 9.7 % (0.0-8.0); NEUT % 51.2 % (16.0-70.0); PLATELET COUNT 312 TH/MM3 (150-450); RED BLOOD COUNT 5.04 MIL/MM3 (4.00-5.30); RED CELL DISTRIBUTION WIDTH 14.7 % (11.6-17.2); WHITE BLOOD COUNT 7.4 TH/MM3 (4.0-11.0)
[2017-08-14 23:21] LABS: APTT (PATIENT) 27.3 SEC (24.3-30.1); INTERNATIONAL NORMALIZED RATIO 1.1 RATIO; PROTHROMBIN TIME - PATIENT 12.1 SEC (9.8-11.6)
[2017-08-14 23:24] LABS: BLOOD, URINE NEG (NEG); COMMENT (UR) CULT NOT INDICATED; CULTURE IF INDICATED CULT NOT INDICATED; GLUCOSE,URINE NEG (NEG); HYALINE CAST, URINE 147 /lpf (RARE); KETONE, URINE NEG (NEG); MUCUS URINE FEW /lpf (OCC); NITRITE,URINE NEG (NEG); PH, URINE 5.5 (5.0-8.5); SQUAMOUS EPITHELIAL CELL URINE 2 /hpf (0-5); URINE COLOR YELLOW (YELLW/STRAW)
[2017-08-14 23:28] LABS: ANION GAP 8 MEQ/L (5-15); AST (GOT) 41 U/L (15-37); BICARBONATE 30.8 MEQ/L (21.0-32.0); BLOOD UREA NITROGEN 16 MG/DL (7-18); CHLORIDE 101 MEQ/L (98-107); GLOMERULAR FILTRATION RATE 77 ML/MIN (>89); POTASSIUM 3.7 MEQ/L (3.5-5.1); SODIUM (NA) 140 MEQ/L (136-145)
[2017-08-14 23:29] LABS: ALT (GPT) 41 U/L (10-53)
[2017-08-14 23:31] LABS: ACETAMINOPHEN LESS THAN 2.0 MCG/ML (10.0-30.0); ALKALINE PHOSPHATASE 67 U/L (45-117); TOTAL BILIRUBIN ADULT 0.6 MG/DL (0.2-1.0)
[2017-08-14 23:38] VITALS: BP 121/86; PULSE 82; RESP 14; O2SAT 96
--- NOTE | 2017-08-14 23:40 | RADRPT ---
EXAM DATE/TIME: 08/14/2017 23:17 [facility] COMPARISON: CT BRAIN W/O CONTRAST, April 14, 2017, 15:07. INDICATIONS : Altered mental status. Possible overdose. RADIATION DOSE: 29.04 CTDIvol (mGy) MEDICAL HISTORY : None SURGICAL HISTORY : None. ENCOUNTER: Initial ACUITY: 1 day PAIN SCALE: 0/10 LOCATION: cranial TECHNIQUE: Multiple contiguous axial images were obtained of the head. Using automated exposure control and adj ustment of the mA and/or kV according to patient size, radiation dose was kept as low as reasonably a chievable to obtain optimal diagnostic quality images. DICOM format image data is available electro nically for review and comparison. FINDINGS: CEREBRUM: The ventricles are normal for age. No evidence of midline shift, mass lesion, hemorrhage or acute in farction. No extra-axial fluid collections are seen. POSTERIOR FOSSA: The cerebellum and brainstem are intact. The 4th ventricle is midline. The cerebellopontine angle i s unremarkable. EXTRACRANIAL: The visualized portion of the orbits is intact. SKULL: The calvaria is intact. No evidence of skull fracture. CONCLUSION: 1. No acute intracranial abnormalities. Mucosal thickening in the ethmoid air cells. Derek Trinidad MD on August 14, 2017 at 23:33 Board Certified Radiologist. This report was verified electronically.
[2017-08-14 23:47] LABS: ALCOHOL 110 MG/DL (0-5)
--- NOTE | 2017-08-14 23:59 | RADRPT ---
EXAM DATE/TIME: 08/14/2017 23:24 [facility] COMPARISON: CHEST SINGLE AP, February 22, 2017, 22:44. INDICATIONS : Syncope MEDICAL HISTORY : Gastroesophageal reflux disease. Coronary artery disease. SURGICAL HISTORY : None. ENCOUNTER: Initial ACUITY: 1 day PAIN SCORE: Non-responsive. LOCATION: Bilateral chest FINDINGS: A single view of the chest demonstrates the lungs to be symmetrically aerated without evidence of mas s, infiltrate or effusion. The cardiomediastinal contours are unremarkable. Osseous structures are intact. CONCLUSION: No acute disease. Derek Trinidad MD on August 14, 2017 at 23:53 Board Certified Radiologist. This report was verified electronically.
[2017-08-15] VITALS (9 sets, daily range): BP systolic 118–156; BP diastolic 80–106; PULSE 78–96; RESP 16–18; TEMP 98.1–98.4; O2SAT 95–100
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
--- NOTE | 2017-08-15 11:39 | EKG ---
Date Performed: 08/14/2017 Time Performed: 22:50:23 PTAGE: 46 years EKG: Sinus rhythm NORMAL ECG PREVIOUS TRACING : 01/12/2017 02.46 Compared to previous tracing, possible prolonged QT interva l is no longer evident. DOCTOR: Vladimir Craig Interpretating Date/Time 08/15/2017 11:37:47
[2017-08-15] MEDS ORDERED: HALOPERIDOL LACTATE 5 MG/ML AMP IM ONE (15:45)
[2017-08-15] MEDS: NICOTINE 21 MG/24 HR PATCH T-DERMAL SCH (16:45)
[2017-08-15] MEDS ORDERED: FLUMAZENIL 0.5 MG/5 ML VIAL IV PUSH PRN (16:45)
[2017-08-15] MEDS ORDERED: LORazepam 2 MG/ML VIAL IV PUSH PRN ×4 (16:45)
[2017-08-15] MEDS: REMOVE OLD PATCH T-DERMAL SCH (16:45)
[2017-08-15] MEDS ORDERED: MAGNESIUM HYDROXIDE SUSP 30 ML CUP PO PRN (16:45)
[2017-08-15] MEDS ORDERED: LORazepam 2 MG TAB PO PRN (16:45)
[2017-08-15] MEDS ORDERED: ALUMINUM/MAGNESIUM/SIMETH 30 ML CUP PO PRN (16:45)
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
[2017-08-15] MEDS ORDERED: ALBUTEROL SULFATE 90 MCG/ACT HFA 8 GM INHALER INH PRN (21:45)
--- NOTE | 2017-08-16 01:12 | EKG ---
Date Performed: 08/15/2017 Time Performed: 18:20:55 PTAGE: 46 years EKG: Sinus rhythm WITH SHORT [place] INTERVAL NONSPECIFIC ST DEPRESSION BORDERLINE ECG PREVIOUS TRACING : 08/14/2017 22.50 Compared to previous tracing, nonspecific ST abnormality is now present. DOCTOR: Vladimir Craig Interpretating Date/Time 08/16/2017 01:12:18
[2017-08-16 05:57] VITALS: BP 150/99; PULSE 62; RESP 18; TEMP 97.9; O2SAT 98
[2017-08-16] MEDS: REMOVE OLD PATCH T-DERMAL SCH (09:00)
[2017-08-16] MEDS ORDERED: NON-FORMULARY DRUG (B-Complex Vitamins (B Complex) 1 CAP) PO SCH (09:00)
[2017-08-16] MEDS: LISINOPRIL 5 MG TAB PO SCH (09:27)
[2017-08-16] MEDS: LANSOPRAZOLE SOLUTAB 30 MG TAB PO SCH (09:27)
[2017-08-16] MEDS: GABAPENTIN 300 MG CAP PO SCH ×3 (09:27→17:21)
[2017-08-16] MEDS: hydrOXYzine HCL 50 MG TAB PO PRN ×3 (09:27→22:21)
[2017-08-16] MEDS: NICOTINE 21 MG/24 HR PATCH T-DERMAL SCH (09:28)
--- NOTE | 2017-08-16 09:51 | EKG ---
Date Performed: 08/16/2017 Time Performed: 09:32:23 PTAGE: 46 years EKG: Sinus rhythm WITH SHORT [place] INTERVAL BORDERLINE ECG PREVIOUS TRACING : 08/15/2017 18.20 No significant change from previous tracing noted. DOCTOR: Vladimir Craig Interpretating Date/Time 08/16/2017 09:49:27
[2017-08-16 11:50] LABS: HDL CHOLESTEROL 65.7 MG/DL (40.0-60.0); LDL CHOLESTEROL 59 MG/DL (0-99)
[2017-08-16 15:16] VITALS: BP 112/80; PULSE 76
--- NOTE | 2017-08-16 15:17 | HHI.PYPN ---
Subjective Remarks This is a request for second opinion. Admission note was reviewed. Case was discussed nursing a patient was evaluated. Vital signs were elevated earlier but were repeated for this interview and were 112/86 with a heart rate of 76. There is no nausea or vomiting, tremors, or acute change in mental status. Patient is alert and oriented 3. She is sleeping and says she is "sleeping it off." She is vague and minimizes her suicide attempt. She remains depressed and hopeless denies suicidal thoughts ideation intent or plan. Behaving well on the unit and tolerating her medications well Objective Alert: Yes [place]: Place, Date, Situation Mood: Calm, Depressed Affect: Blunted Memory Intact: Immediate (grossly intact) Hallucinations: Auditory (music, nonspecific voice) Delusions: No Delusion Type: Other Suicidal: Intent (denies), Plan (denies), Ideation (denies) Homicidal: Ideation (denies) Insight/Judgment Poor Labs Test 08/16/17 10:39 Triglycerides Level 131 MG/DL Cholesterol Level 151 MG/DL LDL Cholesterol 59 MG/DL HDL Cholesterol 65.7 MG/DL Cholesterol/HDL Ratio 2.29 RATIO Thyroid Stimulating Hormone 3rd Gen 1.360 uIU/ML Vitals/IOs Vital Signs Date Time Temp Pulse Resp B/P (MAP) Pulse Ox O2 Delivery O2 Flow Rate FiO2 08/16/17 05:57 97.9 62 18 150/99 (116) 98 08/15/17 11:24 Room Air 08/15/17 00:32 3.00 Assessment & Plan Problem List: (1) Adjustment disorder with depressed mood ICD Codes: F43.21 - Adjustment disorder with depressed mood (2) Alcohol intoxication ICD Codes: F10.129 - Alcohol abuse with intoxication, unspecified Status: Acute Assessment & Plan Vitals every 6 hours, continue CIWA protocol. Consider antipsychotic tomorrow. I agree with the first opinion, criteria include suicide attempt Justification for Cont. Inpt. Patient will decompensate in a less restrictive setting Marcell Saavedra DO Aug 16, 2017 15:17
[2017-08-16 18:00] VITALS: BP 138/71; PULSE 103; RESP 18; TEMP 97.9; O2SAT 99
[2017-08-17] MEDS: diphenhydrAMINE HCL 50 MG CAP PO PRN ×3 (03:24→20:48)
[2017-08-17 05:38] VITALS: BP 141/95; PULSE 72; RESP 16; TEMP 98.6; O2SAT 98
[2017-08-17] MEDS: hydrOXYzine HCL 50 MG TAB PO PRN ×2 (08:04→14:51)
[2017-08-17] MEDS: LISINOPRIL 5 MG TAB PO SCH (08:51)
[2017-08-17] MEDS: FLUoxetine HCL 20 MG CAP PO SCH (08:51)
[2017-08-17] MEDS: LANSOPRAZOLE SOLUTAB 30 MG TAB PO SCH ×2 (08:52→09:00)
[2017-08-17] MEDS: GABAPENTIN 300 MG CAP PO SCH ×3 (08:52→17:58)
[2017-08-17] MEDS: NICOTINE 21 MG/24 HR PATCH T-DERMAL SCH (09:00)
[2017-08-17] MEDS: REMOVE OLD PATCH T-DERMAL SCH (09:00)
[2017-08-17 10:54] VITALS: BP 120/80; PULSE 88; RESP 16; TEMP 98.5
[2017-08-17 15:44] VITALS: BP 149/101; PULSE 73; RESP 18; TEMP 98.3; O2SAT 100
--- NOTE | 2017-08-17 16:02 | HHI.PYPN ---
Subjective Remarks Patient seen for follow-up, chart reviewed. Patient found lying on hospital bed asleep but able to wake up for interview. Patient states that she had been sleeping better since admission, that recently she has been having difficulty with sleep. Patient states that she has been feeling "down" for the past couple of weeks, last saw her psychiatrist Dr. Dorothy Morales on 08/13/17. She reports that prior to her admission she has been having difficulty with sleep, decreased appetite, energy and concentration. She reports that she is on two different probations: dept. of corrections - officer Richard (for resisting arrest), and [facility] - officer Otoniel Lucas (for DUI). She reports that she had been feeling stressed due to her having difficulty finding a job due to her being on probation. Currently she reports her mood being "ok but feeing down", denies SI at this time. She states that she has been having pruritis all over her body with noted raised wheals on her upper thigh and gluteal area.. Review of Systems Except as stated in HPI: all other systems reviewed are Neg Integumentary: COMPLAINS OF: Pruritus Objective Alert: Yes [place]: Place, Date, Situation Mood: Depressed Affect: Restricted Memory Intact: Immediate (grossly intact) Hallucinations: Auditory (music, nonspecific voice) Delusions: No Delusion Type: Other Suicidal: Intent (denies), Plan (denies), Ideation (denies) Homicidal: Ideation (denies) Insight/Judgment Limited insight, impulse control and judgement Vitals/IOs Vital Signs Date Time Temp Pulse Resp B/P (MAP) Pulse Ox O2 Delivery O2 Flow Rate FiO2 08/17/17 15:44 98.3 73 18 149/101 (117) 100 08/15/17 11:24 Room Air 08/15/17 00:32 3.00 Assessment & Plan Problem List: (1) Adjustment disorder with depressed mood ICD Codes: F43.21 - Adjustment disorder with depressed mood (2) Alcohol intoxication ICD Codes: F10.129 - Alcohol abuse with intoxication, unspecified Status: Acute Assessment & Plan Patient noted to be more engaging but continues to endorse depressed mood. Will start zyprexa 5mg PO daily and continue fluoxetine 20mg PO daily for depression. Team will try to reach parole officers to notify patient is in the hospital. Collateral contact: Marley Arora [phone]. Discharge planning in progress. Justification for Cont. Inpt. At risk for further decompensation if at lower level of care. Fortunato Rivas MD Aug 17, 2017 16:02
[2017-08-17 16:25] LABS: HEMOGLOBIN A1a 1.3 %; HEMOGLOBIN A1b 1.5 %; HEMOGLOBIN Ao 86.2 %; HEMOGLOBIN LA1C 2.1 %; HEMOGLOBIN P3 3.3 %
[2017-08-17] MEDS: LORazepam 1 MG TAB PO PRN (20:48)
[2017-08-17] MEDS: OLANZapine 5 MG TAB PO SCH (20:50)
[2017-08-18 06:15] VITALS: BP 156/94; PULSE 75; RESP 18; TEMP 98.8; O2SAT 98
[2017-08-18] MEDS: ACETAMINOPHEN 325 MG TAB PO PRN (08:31)
[2017-08-18] MEDS: FLUoxetine HCL 20 MG CAP PO SCH (08:31)
[2017-08-18] MEDS: LANSOPRAZOLE SOLUTAB 30 MG TAB PO SCH (08:31)
[2017-08-18] MEDS: GABAPENTIN 300 MG CAP PO SCH ×3 (08:31→16:57)
[2017-08-18] MEDS: LISINOPRIL 5 MG TAB PO SCH (08:32)
[2017-08-18] MEDS: REMOVE OLD PATCH T-DERMAL SCH (09:00)
[2017-08-18] MEDS: NICOTINE 21 MG/24 HR PATCH T-DERMAL SCH (09:00)
[2017-08-18] MEDS ORDERED: NYSTATIN 100,000 UNIT/GM CREAM 15 GM TOPICAL SCH (09:00)
[2017-08-18] MEDS: diphenhydrAMINE HCL 50 MG CAP PO PRN ×2 (12:29→21:15)
--- NOTE | 2017-08-18 14:16 | PD.CONS ---
HPI Service [facility] Hospitalists Consult Requested By Fortunato Rivas M.D. Reason for Consult Consult for management of wheals on right upper thigh and gluteal area with generalized pruritus. Primary Care Physician No Primary Care Physician Diagnoses: History of Present Illness Written by Al Hendrickson, acting as scribe for Dr. Alvino Peter on 08/18/17 at 14: 07. Ms. Hartley is 46 years old, with history of alcohol abuse anxiety and pancreatitis. Patient reported having itching of her buttocks as well as dry skin over much of her body over the past 2-3 days. Hospitalist team was consulted to address these concerns. Patient stated that she believed her skin condition is related to "may be the detergent they use here". Patient stated that her "itchiness" was better this morning. Patient stated she has had this condition the past. She stated she was unaware of any type of insect bite or allergic reaction. Patient denied fever, chills, body aches, nausea, vomiting, diarrhea, chest/abdominal pain, shortness of breath. A 10 point review of systems was completed and, except as noted above, was negative. Review of Systems Except as stated in HPI: all other systems reviewed are Neg Past Family Social History Allergies: Coded Allergies: hydrocodone (Verified Allergy, Mild, 07/16/17) STATES MAKES HER FEEL "WIRED" Uncoded Allergies: BEETS (Allergy, Severe, 02/22/17) PT STATES UNKNOWN Past Medical History Anxiety Alcohol abuse- near daily intake "as much as I can get". Pancreatitis. Past Surgical History Patient stated she has not had any surgeries in the past. Reported Medications Reported Meds & Active Scripts Active Proair Hfa 8.5 GM Inh (Albuterol Sulfate) 90 Mcg/Act Aer 2 Puff INH Q4-6H PRN 108 mcg/actuation Lisinopril 5 Mg Tab 5 Mg PO DAILY Zofran (Ondansetron HCl) 4 Mg Tab 4 Mg PO Q6HR PRN Percocet (Oxycodone-Acetaminophen) 5-325 mg Tab 1 Tab PO Q4H PRN Mobic (Meloxicam) 7.5 Mg Tab 15 Mg PO DAILY Please take as little as possible to protect your kindeys. Naltrexone (Naltrexone HCl) 50 Mg Tab 50 Mg PO DAILY 15 Days Hydroxyzine HCl 50 Mg Tab 50 Mg PO Q6H PRN 15 Days Prozac (Fluoxetine HCl) 40 Mg Cap 40 Mg PO DAILY 15 Days Reported Gabapentin 300 Mg Cap 300 Mg PO TID B Complex (B-Complex Vitamins) 1 Cap 1 Cap PO DAILY Alprazolam 0.5 Mg Tab 0.5 Mg PO Q6H PRN Prevacid (Lansoprazole) 30 Mg Capdr 30 Mg PO DAILY Valtrex (Valacyclovir HCl) 500 Mg Tab 500 Mg PO TID PRN Active Ordered Medications Current Medications Medications (Trade) Dose Ordered Sig/[place] Route Start Time Stop Time Status Last Admin (NS Flush) 2 ml UNSCH PRN IVF 08/14/17 23:00 (Benadryl) 50 mg HS PRN PO 08/15/17 16:45 Future hold 08/17/17 20:48 (Tylenol) 650 mg Q4H PRN PO 08/15/17 16:45 08/18/17 08:31 (Milk Of Magnesia Liq) 30 ml DAILY PRN PO 08/15/17 16:45 (Mag-Al Plus Susp Liq) 30 ml Q6H PRN PO 08/15/17 16:45 (Romazicon Inj) 0.2 mg Q1M PRN IV PUSH 08/15/17 16:45 (Ativan) 1 mg Q4H PRN PO 08/15/17 16:45 Future hold 08/17/17 20:48 (Ativan Inj) 1 mg Q4H PRN IV PUSH 08/15/17 16:45 Future hold (Ativan) 2 mg Q2H PRN PO 08/15/17 16:45 Future hold (Ativan Inj) 2 mg Q2H PRN IV PUSH 08/15/17 16:45 Future hold (Ativan Inj) 2 mg Q1H PRN IV PUSH 08/15/17 16:45 Future hold (Ativan Inj) 2 mg Q15M PRN IV PUSH 08/15/17 16:45 Future hold (PROzac) 20 mg DAILY PO 08/16/17 09:00 Future hold 08/18/17 08:31 (Proair Hfa Inh) 2 puff Q4HR NEB PRN INH 08/15/17 21:45 (Neurontin) 300 mg TID PO 08/16/17 09:00 08/18/17 12:28 (Prinivil) 5 mg DAILY PO 08/16/17 09:00 08/18/17 08:32 (Prevacid Odt) 30 mg DAILY PO 08/16/17 09:00 08/18/17 08:31 (Benadryl) 50 mg Q6H PRN PO 08/17/17 18:00 08/18/17 12:29 (ZyPREXA) 5 mg HS PO 08/17/17 21:00 (Mycostatin Cream) 1 applic Q6H TOPICAL 08/18/17 09:00 Family History Mother-CAD, status post CABG 4 at age 48, peripheral vascular disease, diabetes , COPD. Father-murdered when the patient was 9 years old. Social History Alcohol abuse, as noted above. Negative nicotine/cigarette use history. Remote marijuana usage. No other drug use was endorsed. Physical Exam Vital Signs Vital Signs Date Time Temp Pulse Resp B/P (MAP) Pulse Ox O2 Delivery O2 Flow Rate FiO2 08/18/17 06:15 98.8 75 18 156/94 (114) 98 08/17/17 15:44 98.3 73 18 149/101 (117) 100 Physical Exam GENERAL: This is a well-nourished, well-developed patient, in no apparent distress. SKIN: Red, splotchy lesions noted on right buttock extending downward towards thigh. Xeroderma noted on right arm. Cool and dry. HEAD: Atraumatic. Normocephalic. EYES: Pupils equal round and reactive. Extraocular motions intact. No scleral icterus. No injection or drainage. ENT: Nose without bleeding or purulent drainage. Airway patent. NECK: Trachea midline. No lymphadenopathy. Supple and nontender. CARDIOVASCULAR: Regular rate and rhythm without murmurs, gallops, or rubs. RESPIRATORY: Clear to auscultation. Breath sounds equal bilaterally. No wheezes , rales, or rhonchi. GASTROINTESTINAL: Abdomen soft, non-tender, nondistended. No hepato- splenomegaly or guarding. MUSCULOSKELETAL: Extremities without clubbing, cyanosis, or edema. NEUROLOGICAL: Awake and alert. Cranial nerves II through XII intact. Motor and sensory grossly within normal limits. Five out of 5 muscle strength in all muscle groups. Speech clear and fluent. Result Diagram: 08/14/17 [id number]/[id number] Imaging Last Impressions Head CT 08/14/172247 Signed Impressions: Service Date/Time: Monday, August 14, 2017 23:17 - CONCLUSION: 1. No acute intracranial abnormalities. Mucosal thickening in the ethmoid air cells. Derek Trinidad MD Chest X-Ray 08/14/17 2248 Signed Impressions: Service Date/Time: Monday, August 14, 2017 23:24 - CONCLUSION: No acute disease. Derek Trinidad MD Assessment and Plan Assessment and Plan Ms. Hartley is 46 years old, with history of alcohol abuse anxiety and pancreatitis. Patient reported having itching of her buttocks as well as dry skin over much of her body over the past 2-3 days. Hospitalist team was consulted to address these concerns. Candidiasis Wheals Xeroderma -Nystatin ointment q 6 h topical applied to affected areas. -Benadryl 50 mg by mouth as needed every 6 hours for itching -Lac-hydrin 12% skin cream This note was transcribed by HENRY Mathew. I, Dr. Heathre Peter personally performed the history, physical exam, and medical decision making; and confirmed the accuracy of the information in the transcribed note. Authenticated by Dr. Heather Peter on 08/18/17 at 14:07. Code Status Full code Discussed Condition With Patient and nursing staff Al Hendrickson Jr. Aug 18, 2017 14:16 Heather Peter MD Aug 18, 2017 14:28
[2017-08-18] MEDS: NYSTATIN 100,000 U/GM OINT 15 GM TUBE TOPICAL SCH ×2 (15:46→22:00)
--- NOTE | 2017-08-18 16:11 | HHI.PYPN ---
Subjective Remarks Patient seen for follow-up, chart reviewed. Patient found sitting on hospital bed, calm and cooperative with interview. She mentions having seen the hospitalist and was assesed for the rash. She reports less pruritis now and mood being better. She contineus to endorse feeling depressed but states that is getting better. She states that her friend came to visit and felt supported by her. She is worried about relapse into alcohol use and would like to go to inpatient rehabiliation program. Deneis SI, HI, AVH or delusions at this time. Review of Systems Except as stated in HPI: all other systems reviewed are Neg Objective Alert: Yes [place]: Place, Date, Situation Mood: Depressed Affect: Restricted Memory Intact: Comment (intact) Hallucinations: Auditory (denies at this time) Delusions: No Delusion Type: Other Suicidal: Ideation (denies) Homicidal: Ideation (denies) Insight/Judgment improved insight, impulse control and judgment Vitals/IOs Vital Signs Date Time Temp Pulse Resp B/P (MAP) Pulse Ox O2 Delivery O2 Flow Rate FiO2 08/18/17 06:15 98.8 75 18 156/94 (114) 98 08/15/17 11:24 Room Air 08/15/17 00:32 3.00 Intake and Output 08/18/17 08/18/17 08/19/17 08:00 16:00 00:00 Intake Total 240 ml Balance 240 ml Assessment & Plan Problem List: (1) Adjustment disorder with depressed mood ICD Codes: F43.21 - Adjustment disorder with depressed mood (2) Alcohol intoxication ICD Codes: F10.129 - Alcohol abuse with intoxication, unspecified Status: Acute Assessment & Plan Patient continues to endorse depressed mood but denies any suicidal ideations. Patient tolerating medications well. Continue current treatment. Patient interested in inpatient rehabiliation program which she would benefit from which the possibilities continue to be explored. Discharge planning in progress. Justification for Cont. Inpt. At risk for further decompensation if at lower level of care. Fortunato Rivas MD Aug 18, 2017 16:11
[2017-08-18] MEDS: LORazepam 1 MG TAB PO PRN ×2 (18:04→23:23)
[2017-08-18 18:15] VITALS: BP 123/80; PULSE 73; RESP 18; TEMP 98.5; O2SAT 100
[2017-08-18] MEDS: LACTIC ACID (AMMONIUM LACTATE) 12% LOTION 225 GM BTL TOPICAL SCH (21:00)
[2017-08-18] MEDS: OLANZapine 5 MG TAB PO SCH (21:00)
[2017-08-19] MEDS: diphenhydrAMINE HCL 50 MG CAP PO PRN ×3 (03:19→20:18)
[2017-08-19] MEDS: NYSTATIN 100,000 U/GM OINT 15 GM TUBE TOPICAL SCH ×4 (04:00→20:49)
[2017-08-19 06:23] VITALS: BP 146/89; PULSE 72; RESP 16; TEMP 98.1; O2SAT 100
[2017-08-19] MEDS: GABAPENTIN 300 MG CAP PO SCH ×3 (08:41→17:49)
[2017-08-19] MEDS: FLUoxetine HCL 20 MG CAP PO SCH (08:41)
[2017-08-19] MEDS: LISINOPRIL 5 MG TAB PO SCH (08:42)
[2017-08-19] MEDS: LANSOPRAZOLE SOLUTAB 30 MG TAB PO SCH (08:45)
[2017-08-19] MEDS: LACTIC ACID (AMMONIUM LACTATE) 12% LOTION 225 GM BTL TOPICAL SCH ×2 (08:50→20:16)
--- NOTE | 2017-08-19 11:39 | HHI.PR ---
Subjective Remarks Patient appears in nad. Says rash has improved significantly. She has less pruritus. No fever or chills. No n/v/d/c. Objective Vitals Vital Signs Date Time Temp Pulse Resp B/P (MAP) Pulse Ox O2 Delivery O2 Flow Rate FiO2 08/19/17 06:23 98.1 72 16 146/89 (108) 100 08/18/17 18:15 98.5 73 18 123/80 (94) 100 I/O 08/18/17 08/18/17 08/18/17 08/19/17 08/19/17 08/19/17 07:00 15:00 23:00 07:00 15:00 23:00 Intake Total 240 ml Balance 240 ml Intake Oral 240 ml Imaging Last Impressions Head CT 08/14/172247 Signed Impressions: Service Date/Time: Monday, August 14, 2017 23:17 - CONCLUSION: 1. No acute intracranial abnormalities. Mucosal thickening in the ethmoid air cells. Derek Trinidad MD Chest X-Ray 08/14/172247 Signed Impressions: Service Date/Time: Monday, August 14, 2017 23:24 - CONCLUSION: No acute disease. Derek Trinidad MD Objective Remarks GENERAL: This is a well-nourished, well-developed patient, in no apparent distress. SKIN: Red, splotchy lesions noted on right buttock extending downward towards thigh. Xeroderma noted on right arm. Cool and dry. CARDIOVASCULAR: Regular rate and rhythm without murmurs, gallops, or rubs. RESPIRATORY: Clear to auscultation. Breath sounds equal bilaterally. No wheezes , rales, or rhonchi. GASTROINTESTINAL: Abdomen soft, non-tender, nondistended. No hepato- splenomegaly or guarding. MUSCULOSKELETAL: Extremities without clubbing, cyanosis, or edema. NEUROLOGICAL: Awake and alert. Cranial nerves II through XII intact. Motor and sensory grossly within normal limits. Five out of 5 muscle strength in all muscle groups. Speech clear and fluent. A/P Assessment and Plan Ms. Hartley is 46 years old, with history of alcohol abuse anxiety and pancreatitis. Patient reported having itching of her buttocks as well as dry skin over much of her body over the past 2-3 days. Hospitalist team was consulted to address these concerns. Rash on buttocks, improved Candidiasis Wheals Xeroderma Pruritus -Nystatin ointment q 6 h topical applied to affected areas. -Benadryl 50 mg by mouth as needed every 6 hours for itching -Lac-hydrin 12% skin cream Discussed Condition With Patient and nurse Heather Peter MD Aug 19, 2017 11:39
--- NOTE | 2017-08-19 15:29 | HHI.PYPN ---
Subjective Remarks Patient is seen for follow-up, chart reviewed. Patient found sitting on bed reading [employer] that was ghost writer by occupational therapist. Patient states that she her itching is better and that her mood has been "much better". Patient states that her boyfriend will be visiting her later today which she is happy about. Patient denies any suicide ideations but continues to feel somewhat depressed. Patient states that she wants to be alive but also wants to be able to maintain sobriety from alcohol use. Patient denies any perceptual disturbances or delusions at this time. Patient reports tolerating medications well with no adverse drug reactions. Patient stated that she would like to go to an inpatient rehabilitation program if possible but understands the importance of maintaining herself in some sort of treatment program. Chief Complaint: suicide attempt via overdose Review of Systems Except as stated in HPI: all other systems reviewed are Neg Mental Status Examination Consciousness: Alert Appearance: Appropriate Speech: Unremarkable, Other (yelling and cursing) Orientation: x3 Memory: Unremarkable Thought Content: Goal directed, Linear Thought Associations: Intact Language: Other (normal) Fund of Knowledge: Average Hallucination Type: None Attention and Concentration: Good, Other (unable to assess due to patient's agitaiotn) Suicidal Ideation: No Previous Suicide Attempts: Yes Homicidal Ideation: No Previous Homicide Attempts: No Insight: Adequate Judgment: Adequate Affect: Sad Mood: Sad Results Vitals/IOs Vital Signs Date Time Temp Pulse Resp B/P (MAP) Pulse Ox O2 Delivery O2 Flow Rate FiO2 08/19/17 06:23 98.1 72 16 146/89 (108) 100 08/15/17 11:24 Room Air Assessment & Plan Problem List: (1) Adjustment disorder with depressed mood ICD Codes: F43.21 - Adjustment disorder with depressed mood (2) Alcohol intoxication ICD Codes: F10.129 - Alcohol abuse with intoxication, unspecified Status: Acute Assessment & Plan Patient at this time noted to be continually dysphoric, but denied any suicidal ideations. Patient motivated to rehabilitation program for substance use upon discharge. Patient reports tolerating recent addition of Zyprexa yesterday well with no adverse drug reactions. Continue with the medications. Discharge planning in progress Justification for Cont. Inpt. At risk for further decompensation if at lower level of care Fortunato Rivas MD Aug 19, 2017 15:29
[2017-08-19 17:00] VITALS: BP 164/99; PULSE 71; RESP 18; TEMP 97; O2SAT 96
--- NOTE | 2017-08-19 17:15 | PD.TTN ---
Patient Problems 1. Discharge planning 2. Medication compliance 3. Knowledge deficit 4. Lack of coping skills Progress Toward Goals Provider Present: Dr. Janice Rivas Provider Input: Dr. Clark's treatment team met to discuss treatment plan, discharge, and medication. Patient is being given new medication. Continue with treatment. Psychiatric Counselors Present: ROMINA SaezFrank Psych Therapist Input: Patient seen today. Patient presented calm, cooperative but guarded, affect appropriate. Patient's speech was clear, organized and appropriate. Patient made good eye contact. patient is alert x5. Patient denies suicidal and homicidal ideation. Patient does not present to be internally stimulated or with any delusional content. Patient's long and short term memory appear to be intact. Patient's mood and affect appear congruent. Group Spec/RT/OT/FRAGA Present: FLAKITO Em Group Spec/RT/OT/FRAGA Input: Patient doesn't attend groups Luz Zaldivar [facility] Aug 19, 2017 17:15
[2017-08-19] MEDS: OLANZapine 5 MG TAB PO SCH (20:16)
[2017-08-20] MEDS: NYSTATIN 100,000 U/GM OINT 15 GM TUBE TOPICAL SCH ×4 (02:06→22:15)
[2017-08-20 05:56] VITALS: BP 125/85; PULSE 72; RESP 16; TEMP 97.6; O2SAT 95
[2017-08-20 06:06] VITALS: BP 125/85; PULSE 72; RESP 16; TEMP 97.6; O2SAT 95
--- NOTE | 2017-08-20 07:22 | HHI.PR ---
Subjective Remarks Rash improving. Patient in nad. Patient denies chest pain sob. Not eating much, doesn't like the food, No n/v/d/c. Objective Vitals Vital Signs Date Time Temp Pulse Resp B/P (MAP) Pulse Ox O2 Delivery O2 Flow Rate FiO2 08/20/17 06:06 97.6 72 16 125/85 (98) 95 08/20/17 05:56 97.6 72 16 125/85 (98) 95 08/19/17 17:00 97.0 71 18 164/99 (120) 96 Imaging Last Impressions Head CT 08/14/172247 Signed Impressions: Service Date/Time: Monday, August 14, 2017 23:17 - CONCLUSION: 1. No acute intracranial abnormalities. Mucosal thickening in the ethmoid air cells. Derek Trinidad MD Chest X-Ray 08/14/172247 Signed Impressions: Service Date/Time: Monday, August 14, 2017 23:24 - CONCLUSION: No acute disease. Derek Trinidad MD Objective Remarks GENERAL: This is a well-nourished, well-developed patient, in no apparent distress. SKIN: Red, splotchy lesions noted on right buttock extending downward towards thigh improved. Xeroderma noted on right arm. Cool and dry. CARDIOVASCULAR: Regular rate and rhythm without murmurs, gallops, or rubs. RESPIRATORY: Clear to auscultation. Breath sounds equal bilaterally. No wheezes , rales, or rhonchi. GASTROINTESTINAL: Abdomen soft, non-tender, nondistended. No hepato- splenomegaly or guarding. MUSCULOSKELETAL: Extremities without clubbing, cyanosis, or edema. NEUROLOGICAL: Awake and alert. Cranial nerves II through XII intact. Motor and sensory grossly within normal limits. Five out of 5 muscle strength in all muscle groups. Speech clear and fluent. A/P Assessment and Plan Ms. Hartley is 46 years old, with history of alcohol abuse anxiety and pancreatitis. Patient reported having itching of her buttocks as well as dry skin over much of her body over the past 2-3 days. Hospitalist team was consulted to address these concerns. Rash on buttocks, improved Candidiasis Wheals Xeroderma Pruritus -Nystatin ointment q 6 h topical applied to affected areas. -Benadryl 50 mg by mouth as needed every 6 hours for itching -Lac-hydrin 12% skin cream Discussed Condition With Patient and nurse Heather Peter MD Aug 20, 2017 07:22
[2017-08-20] MEDS: LANSOPRAZOLE SOLUTAB 30 MG TAB PO SCH (09:18)
[2017-08-20] MEDS: FLUoxetine HCL 20 MG CAP PO SCH (09:18)
[2017-08-20] MEDS: GABAPENTIN 300 MG CAP PO SCH ×3 (09:19→18:45)
[2017-08-20] MEDS: LISINOPRIL 5 MG TAB PO SCH (09:19)
[2017-08-20] MEDS: LACTIC ACID (AMMONIUM LACTATE) 12% LOTION 225 GM BTL TOPICAL SCH ×2 (09:19→20:44)
[2017-08-20] MEDS: LORazepam 1 MG TAB PO PRN (10:00)
[2017-08-20] MEDS: ACETAMINOPHEN 325 MG TAB PO PRN (13:41)
--- NOTE | 2017-08-20 17:15 | HHI.PYPN ---
Subjective Remarks Patient seen for follow-up, chart reviewed. Patient was transferred to a lower acuity unit. Patient was found sitting on hospital bed calm and cooperative with interview. Patient states feeling "fine", took a shower, mood has been "pretty good". Patient reports feeling much better. She reports having seen her boyfriend yesterday and was upset about her dog being "put down" but was supported by boyfriend. Denies SI, HI, AVH or delusions. Chief Complaint: suicide attempt via overdose Review of Systems Except as stated in HPI: all other systems reviewed are Neg Mental Status Examination Appearance: Appropriate Consciousness: Alert Orientation: x4 Motor Activity: Normal gait Speech: Unremarkable Language: Adequate Fund of Knowledge: Adequate Attention and Concentration: Adequate Memory: Unremarkable Mood: Sad Affect: Appropriate Thought Process & Associations: Intact, Logical, Goal directed Thought Content: Appropriate Hallucination Type: None Delusion Type: None Suicidal Ideation: No Suicidal Plan: No Suicidal Intention: No Homicidal Ideation: No Homicidal Plan: No Homicidal Intention: No Insight: Adequate Judgment: Adequate Results Vitals/IOs Vital Signs Date Time Temp Pulse Resp B/P (MAP) Pulse Ox O2 Delivery O2 Flow Rate FiO2 08/20/17 06:06 97.6 72 16 125/85 (98) 95 Assessment & Plan Problem List: (1) Adjustment disorder with depressed mood ICD Codes: F43.21 - Adjustment disorder with depressed mood (2) Alcohol intoxication ICD Codes: F10.129 - Alcohol abuse with intoxication, unspecified Status: Acute Assessment & Plan Patient continues to respond to treatment, no longer endorsing suicidal ideations. Continue current treatment, possibility of discharge tomorrow Discharge planning in progress. Justification for Cont. Inpt. At risk for further decompensation if at lower level of care. Fortunato Rivas MD Aug 20, 2017 17:15
[2017-08-20 18:24] VITALS: BP 148/92; PULSE 73; RESP 18; TEMP 98.3; O2SAT 99
[2017-08-20 18:26] VITALS: BP 153/88; PULSE 66; RESP 16; TEMP 97.7; O2SAT 98
[2017-08-20] MEDS: OLANZapine 5 MG TAB PO SCH (20:45)
[2017-08-21] MEDS: NYSTATIN 100,000 U/GM OINT 15 GM TUBE TOPICAL SCH ×3 (04:00→16:00)
[2017-08-21 06:02] VITALS: BP 151/94; PULSE 68; RESP 16; TEMP 98; O2SAT 98
[2017-08-21] MEDS: LORazepam 1 MG TAB PO PRN (07:06)
--- NOTE | 2017-08-21 08:01 | HHI.PR ---
Subjective Remarks Was anxious overnight and did sweet, more withdrawals yesterday. She now has developed pruritus underneath breasts and [place] rash. No n/v/d/c. Denies chest pain or sob. Eating better. Objective Vitals Vital Signs Date Time Temp Pulse Resp B/P (MAP) Pulse Ox O2 Delivery O2 Flow Rate FiO2 08/21/17 06:02 98.0 68 16 151/94 (113) 98 08/20/17 18:26 97.7 66 16 153/88 (109) 98 08/20/17 18:24 98.3 73 18 148/92 (110) 99 Objective Remarks GENERAL: This is a well-nourished, well-developed patient, in no apparent distress. SKIN: Red, splotchy lesions noted on right buttock extending downward towards thigh improved. Xeroderma noted on right arm. Mild erythema underneath breasts. Cool and dry. CARDIOVASCULAR: Regular rate and rhythm without murmurs, gallops, or rubs. RESPIRATORY: Clear to auscultation. Breath sounds equal bilaterally. No wheezes , rales, or rhonchi. GASTROINTESTINAL: Abdomen soft, non-tender, nondistended. No hepato- splenomegaly or guarding. MUSCULOSKELETAL: Extremities without clubbing, cyanosis, or edema. NEUROLOGICAL: Awake and alert. Cranial nerves II through XII intact. Motor and sensory grossly within normal limits. Five out of 5 muscle strength in all muscle groups. Speech clear and fluent. A/P Assessment and Plan Ms. Hartley is 46 years old, with history of alcohol abuse anxiety and pancreatitis. Patient reported having itching of her buttocks as well as dry skin over much of her body over the past 2-3 days. Hospitalist team was consulted to address these concerns. Rash on buttocks/ under breasts, improved Cutaneous Candidiasis Wheals Xeroderma Pruritus -Nystatin ointment q 6 h topical applied to affected areas. -Benadryl 50 mg by mouth as needed every 6 hours for itching -Lac-hydrin 12% skin cream Discussed Condition With Patient and nurse Heather Peter MD Aug 21, 2017 08:01
[2017-08-21] MEDS: LACTIC ACID (AMMONIUM LACTATE) 12% LOTION 225 GM BTL TOPICAL SCH (09:00)
[2017-08-21] MEDS: GABAPENTIN 300 MG CAP PO SCH ×2 (09:10→13:16)
[2017-08-21] MEDS: LANSOPRAZOLE SOLUTAB 30 MG TAB PO SCH (09:10)
[2017-08-21] MEDS: LISINOPRIL 5 MG TAB PO SCH (09:10)
[2017-08-21] MEDS: FLUoxetine HCL 20 MG CAP PO SCH (09:10)
[2017-08-21] MEDS ORDERED: FLUO20CA12 PO (13:54)
[2017-08-21] MEDS ORDERED: LISI-519 PO (13:54)
[2017-08-21] MEDS ORDERED: LANS30CA PO (13:54)
[2017-08-21] MEDS ORDERED: LACT12LO4 TOPICAL (13:54)
[2017-08-21] MEDS ORDERED: NEUR300C PO (13:54)
[2017-08-21] MEDS ORDERED: OLAN5TAB PO (13:54)
[2017-08-21] MEDS ORDERED: NYST100084 TOPICAL (13:54)
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
== END 2017-08-21 16:54 | disposition home or self-care (01) | DRG 881 ==
LOC: NEPC 22:44 → NEDA 08-15 16:51 → H270 08-15 19:37 → H260 08-19 13:30
PROVIDERS: ADMIT Student in an Organized Health Care Education/Training Program; ATTEND Student in an Organized Health Care Education/Training Program
DX: F43.21 Adjustment disorder with depressed mood (principal); Z78.1 Physical restraint status; I10 Essential (primary) hypertension; F41.9 Anxiety disorder, unspecified; J45.909 Unspecified asthma, uncomplicated; F10.129 Alcohol abuse with intoxication, unspecified; Y90.5 Blood alcohol level of 100-119 mg/100 ml; R21 Rash and other nonspecific skin eruption; L50.9 Urticaria, unspecified; Z91.410 Personal history of adult physical and sexual abuse
CPT/HCPCS: 36600; 70450; 71010; 80053; 80061; 80307; 81001; 82550; 82805; 83036; 84443; 85025; 85610; 85730; 93005; 96361; 96372; 96374; J1630; J2060; J2310; J7030; P9612; Q0163